=== PATIENT | male | born 1985 | race Caucasian/White ===

== ENCOUNTER 2017-11-25 19:04 | Emergency (ER) | payer OTHER, SELFPAY ==
[2017-11-25 19:09] VITALS: BP 168/102; PULSE 83; RESP 18; TEMP 36.7; O2SAT 95
--- NOTE | 2017-11-25 19:25 | ED.GENADUL_ITS ---
Discharge Plan Disposition Patient Disposition: HOME Condition: Good Discharge Details Chief Complaint: Nk/Back Pain Clinical Impression: Lumbar strain Primary Care Provider: Tigist Guerin ED Provider: Stu Villagomez Home Meds and New Rx's Prescriptions: New cyclobenzaprine 10 mg tablet 10 mg PO TID PRN (Reason: pain) Qty: 20 RF: 0 No Action sertraline 50 MG tablet 50 mg PO DAILY Qty: 90 RF: 4 methylphenidate HCl [Metadate ER] 20 mg tablet extended release 20 mg PO DAILY Qty: 30 RF: 0 Discharge Instructions Instructions: Low Back Strain (ED) Stand Alone Forms: Work Release Discharge Data Discharge Physician: Stu Villagomez Medical Decision Making 32 yo male who denies chronic medical problems, no hx of back surgeries or ivdu , comes in with cc of lower back pain for 5 days after heavy lifting at work. He denies difficultyurinating, weakness, numbness. HAs sharp pain shooting down left leg per pt. HAs no saddle anesthesia, normal relfexes and normal distal sensation. Based on his exam I suspect lumbar strain vs muscle spasm vs disc herniation. Has no abdominal pain to suggest intrabdominal surgical pathology. No findings to suggest cauda equina vs sea or other findings to suggest spinal cord compression. ADvised f/u with pcp within 2 weeks and return precautions given Differential Diagnosis lumbar strain, muscle spasm, disc herniation HPI General Mode of arrival: ambulatory . Date/Time Provider Initiated Documentation: 11/25/17 19:15 . Limitations to Documentation: no limitations . Information obtained by: patient . History of Present Illness 32 year old M presents to the emergency department with the chief complaint of back pain, described as moderate, with intensity rated at 8. and is localized to the back. Patient reports no radiation. Patient started experiencing this day(s) (5) No relieving factors improve symptom(s), Patient notes no other symptoms.. Patient did receive the following treatments prior to arrival, none Related Data Home Medications Medication Instructions Recorded Confirmed sertraline 50 mg PO DAILY #90 tab-cap 05/30/17 11/25/17 methylphenidate ER 20 mg 20 mg PO DAILY #30 tab 11/05/17 11/25/17 tablet,extended release cyclobenzaprine 10 mg PO TID PRN #20 tab 11/25/17 Previous Rx's Medication Instructions Recorded sertraline 50 mg PO DAILY #90 tab-cap 05/30/17 methylphenidate ER 20 mg 20 mg PO DAILY #30 tab 11/05/17 tablet,extended release cyclobenzaprine 10 mg PO TID PRN #20 tab 11/25/17 Allergies Allergy/AdvReac Type Severity Reaction Status Date / Time No Known Allergies Allergy Unverified 11/25/17 19:12 General Stated Complaint: Nk/Back Pain TERRY: 4 Review of Systems Review of Systems All systems reviewed & are unremarkable except as noted in HPI and below Constitutional Denies chills, Denies fever(s) and Denies weakness Eyes Denies loss of vision ENT Denies change in voice Cardiovascular Denies chest pain and Denies dyspnea Respiratory Denies dyspnea Gastrointestinal Denies abdominal pain, Denies nausea and Denies vomiting Genitourinary Denies dysuria Musculoskeletal Denies joint swelling Integumentary/Breasts Denies rash Neurologic Denies loss of vision and Denies weakness Psychiatric Denies depression Endocrine Denies cold intolerance and Denies heat intolerance Allergic/Immunologic Reports urticaria [facility] Social History Smoking/Tobacco Use Status: Never Exam Const General: no acute distress Orientation: alert HENMT Head: normal to inspection Ears: external ears normal General nose exam: external nose normal Mouth: moist mucous membranes Eyes General: appearance normal, both eyes and all related structures Neck Neck: normal visual inspection Resp Effort & Inspection: normal respiratory effort and able to speak in complete sentences Cardio Rate: regular rate Back/Spine/Pelvis Back: no CVA tenderness and other (pain throughout the lumbar region, no midline pain or stepoffs) Skin General skin exam: no rashes or lesions noted Neuro General: alert and oriented x3 Extrem General: normal to inspection Psych Mental Status: mental status grossly normal Course Vital Signs Temperature 36.7 C 11/25/17 19:09 Pulse 83 11/25/17 19:09 Respiratory Rate 18 11/25/17 19:09 Blood Pressure 168/102 H 11/25/17 19:09 Pulse Oximetry 95 11/25/17 19:09 Temperature 36.7 C 11/25/17 19:09 Temperature Source Temporal Artery Scan 11/25/17 19:09 Pulse 83 11/25/17 19:09 Respiratory Rate 18 11/25/17 19:09 Respiratory Effort 11/25/17 19:09 Blood Pressure 168/102 H 11/25/17 19:09 Blood Pressure Position Sitting 11/25/17 19:09 Pulse Oximetry 95 11/25/17 19:09 Oxygen Delivery Method Room Air 11/25/17 19:09 Oxygen Flow Rate 0 11/25/17 19:09
[2017-11-25] MEDS: Cyclobenzaprine 10 MG TAB PO (19:40)
[2017-11-25] MEDS: Ibuprofen 600 MG TAB PO (19:40)
== END 2017-11-25 19:49 | disposition home or self-care (01) ==
PROVIDERS: Emergency Provider Emergency Medicine; PCP Internal Medicine
DX: S39.012A Strain of muscle, fascia and tendon of lower back, initial encounter (principal); X50.0XXA Overexertion from strenuous movement or load, initial encounter
CPT/HCPCS: 99283

== ENCOUNTER 2017-12-12 01:09 | Outpatient (CLI) | payer OTHER, SELFPAY ==
--- NOTE | 2017-12-12 08:20 | DI.MRI_ITS ---
SYMPTOMS/DIAGNOSIS: BACK PAIN, LT LEG RADICULOPATHY, DORSALGIA, M54.9 LUMBAR SPINE MRI: The study was carried out according to the usual protocol. No significant bony signal abnormality is seen. There is partial lumbarization of S 1. At L 1 - 2 the disc is normal. There is mild facet joint DJD and no evidence of spinal stenosis. At L 2 - 3 there is no evidence of a disc herniation. There is mild facet joint DJD and no evidence of spinal stenosis. At L 4 - 5 there is no evidence of a disc herniation. There are mild facet joint degenerative changes and no evidence of spinal stenosis. At L 5 - S 1 there is asymmetric left sided disc osteophyte prominence and moderate facet joint DJD with moderate left foraminal stenosis. There is no intrinsic abnormality involving the lower dorsal cord, conus or filum terminale. SUMMARY: Evidence of degenerative disc disease and DJD with moderate to severe left foraminal stenosis at L 5 - S 1. Please see the above discussion.
== END 2017-12-12 01:29 ==
PROVIDERS: PCP Internal Medicine; Visit Provider Internal Medicine
DX: M54.5 Low back pain (principal); M51.17 Intervertebral disc disorders with radiculopathy, lumbosacral region
CPT/HCPCS: 72148

== ENCOUNTER 2017-12-27 09:52 | Emergency (ER) | payer OTHER, SELFPAY ==
[2017-12-27 10:01] VITALS: BP 149/78; PULSE 80; RESP 16; TEMP 36.8; O2SAT 96
--- NOTE | 2017-12-27 10:08 | W.ED.GENAD ---
Discharge Plan Disposition Patient Disposition: HOME Condition: Good Discharge Details Chief Complaint: HeadInjury Clinical Impression: Furuncle Primary Care Provider: Tigist Guerin ED Provider: Dalton Cordon Home Meds and New Rx's Prescriptions: New sulfamethoxazole-trimethoprim [Bactrim DS] 800-160 mg tablet 1 tab PO DAILY Qty: 20 RF: 0 No Action methylphenidate HCl [Metadate ER] 20 mg tablet extended release 20 mg PO DAILY MDD 20 Qty: 30 RF: 0 tramadol 50 mg tablet 50 mg PO QID PRN (Reason: pain) Qty: 50 RF: 0 sertraline 50 MG tablet 50 mg PO DAILY Qty: 90 RF: 4 cyclobenzaprine 10 mg tablet 10 mg PO TID PRN (Reason: pain) Qty: 20 RF: 0 Discharge Instructions Instructions: Folliculitis (ED) Additional Instructions: Please take the antibiotic as directed. If you notice any worsening of your symptoms, or any new symptoms such as vomiting, diarrhea, fever, chills, shortness of breath, chest pain, numbness, weakness, or fainting , please return immediately to the emergency department for reevaluation. Please follow up with your primary care provider as soon as possible for reassessment and reevaluation. As always, it was a pleasure participating in your medical care today. Referrals: Tigist Guerin MD [Primary Care Provider] - Medical Decision Making This is a pleasant 32-year-old male who presents with signs and symptoms consistent with a furuncle. Unfortunately did try stopping it with a needle the other night, and got some drainage from it. He since has noted some spreading of the tenderness. Physical exam demonstrates no significant fluctuance, or fluid collection on ultrasound. Tetanus is up-to-date. No signs of severe cellulitis, mastoiditis, no headache symptoms of venous sinus thrombosis or other abnormality. No systemic symptoms of fever or chills. Normal vital signs. We will prescribe Bactrim, discharged home with close follow-up. We discussed red flags which return the patient understands. I have extensively reviewed the treatment plan and discharge instructions with the patient and their family. I have addressed all patient concerns at this time. The patient and family was made aware of what symptoms to monitor for that would warrant a return to the emergency department. Discussed the plan with the patient and family, they demonstrate verbal understanding and agreement with our assessment and plan at this time. HPI General Date/Time Provider Initiated Documentation: 12/27/17 10:07. HPI Narrative: This is a pleasant 32-year-old male with a past medical history of chronic back pain who presents today for evaluation of a scalp infection. He states that for the last 3-4 days he has had a small boil in the back of the scalp, however recently he tried stabbing it with a sterile needle, and it got some purulent discharge out. He was concerned because it was becoming more tender and he felt that there might be some spreading as well of the tenderness. He denies any systemic symptoms of fever, chills, headache, vision changes. He denies any history of autoimmune conditions. He denies any allergies. He denies any pertinent family or surgical history. He has no other complaints at this time. No other aggravating or relieving factors. Related Data Home Medications Medication Instructions Recorded Confirmed sertraline 50 mg PO DAILY #90 tab-cap 05/30/17 12/06/17 cyclobenzaprine 10 mg PO TID PRN #20 tab 11/25/17 12/06/17 methylphenidate ER 20 mg 20 mg PO DAILY #30 tab MDD 20 12/06/17 12/06/17 tablet,extended release tramadol 50 mg tablet 50 mg PO QID PRN #50 tab 12/06/17 12/06/17 sulfamethoxazole-trimethoprim 1 tab PO DAILY #20 tab 12/27/17 [Bactrim DS] Previous Rx's Medication Instructions Recorded sertraline 50 mg PO DAILY #90 tab-cap 05/30/17 cyclobenzaprine 10 mg PO TID PRN #20 tab 11/25/17 methylphenidate ER 20 mg 20 mg PO DAILY #30 tab MDD 20 12/06/17 tablet,extended release tramadol 50 mg tablet 50 mg PO QID PRN #50 tab 12/06/17 sulfamethoxazole-trimethoprim 1 tab PO DAILY #20 tab 12/27/17 [Bactrim DS] Allergies Allergy/AdvReac Type Severity Reaction Status Date / Time No Known Allergies Allergy Verified 12/06/17 15:33 General Stated Complaint: HeadInjury TERRY: 3 Review of Systems Review of Systems All systems reviewed & are unremarkable except as noted in HPI and below Exam Narrative Exam Narrative: 1.Const: Well-nourished, Well-developed, appearing stated age 2.Eyes: PERRL, no conjunctival injection, and symmetrical lids. 3.ENT: Atraumatic external nose and ears. Moist MM. Neck: Symmetric, trachea midline, No thyromegaly. 4.CVS: +S1/S2, No murmurs or gallops. Peripheral pulses 2+ and equal in all extremities. Brisk capillary refill in all extremities. 5.RESP: Unlabored respiratory effort. Clear to auscultation bilaterally. No wheezes rales or rhonchi 6.GI: Soft, Nontender/Nondistended, No hepatosplenomegaly. No guarding or rebound. 7.MSK: Normocephalic/Atraumatic, Extremities w/o deformity or ttp No cyanosis or clubbing, Normal movement of all extremities 8.Skin: Warm, Dry. Patient's right posterior scalp of the right occiput demonstrates evidence of a small firm uncle. No pustular component. Minimal tenderness. Minimal erythema. Bedside ultrasound demonstrates no significant fluid collection. No fluctuance. No evidence of mastoid tenderness, otitis externa or other abnormalities. No active drainage. 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 Sensation grossly intact, no focal neurologic deficits. 10.Psych: (AAO) x3. Appropriate mood and affect Course Vital Signs Temperature 36.8 C 12/27/17 10:01 Pulse 80 12/27/17 10:01 Respiratory Rate 16 12/27/17 10:01 Blood Pressure 149/78 H 12/27/17 10:01 Pulse Oximetry 96 12/27/17 10:01 Temperature 36.8 C 12/27/17 10:01 Temperature Source Temporal Artery Scan 12/27/17 10:01 Pulse 80 12/27/17 10:01 Respiratory Rate 16 12/27/17 10:01 Respiratory Effort 12/27/17 10:03 Respiratory Depth Normal 12/27/17 10:03 Respiratory Pattern Normal 12/27/17 10:03 Blood Pressure 149/78 H 12/27/17 10:01 Blood Pressure Position Sitting 12/27/17 10:01 Pulse Oximetry 96 12/27/17 10:01 Oxygen Delivery Method Room Air 12/27/17 10:01 Oxygen Flow Rate 0 11/15/18 10:01 Pain Level 8 12/27/17 10:01
[2017-12-27 10:15] VITALS: BP 135/80; PULSE 75; RESP 18; TEMP 36.9; O2SAT 99
== END 2017-12-27 10:16 | disposition home or self-care (01) ==
LOC: ER 10:18
PROVIDERS: Emergency Provider Student in an Organized Health Care Education/Training Program; PCP Internal Medicine
DX: L02.821 Furuncle of head [any part, except face] (principal)
CPT/HCPCS: 99283

== ENCOUNTER 2018-01-01 21:46 | Emergency (ER) | payer OTHER, SELFPAY ==
[2018-01-01 21:50] VITALS: BP 121/75; PULSE 65; RESP 16; TEMP 36.4; O2SAT 94
--- NOTE | 2018-01-01 22:12 | W.ED.GENAD ---
Discharge Plan Disposition Patient Disposition: HOME Condition: Improving Discharge Details Chief Complaint: RashLesion Clinical Impression: Abscess of scalp Primary Care Provider: Tigist Guerin ED Provider: Kirill Tsang Home Meds and New Rx's Prescriptions: New cephalexin 500 mg tablet 500 mg PO TID 7 Days Qty: 21 RF: 0 Continue methylphenidate HCl [Metadate ER] 20 mg tablet extended release 20 mg PO DAILY MDD 20 Qty: 30 RF: 0 tramadol 50 mg tablet 50 mg PO QID PRN (Reason: pain) Qty: 50 RF: 0 sertraline 50 MG tablet 50 mg PO DAILY Qty: 90 RF: 4 hydrocodone-acetaminophen 5-325 mg tablet 1 tab PO Q6H MDD 4 tabs PRN (Reason: pain) Qty: 30 RF: 0 cyclobenzaprine 10 mg tablet 10 mg PO TID PRN (Reason: pain) Qty: 20 RF: 0 sulfamethoxazole-trimethoprim [Bactrim DS] 800-160 mg tablet 1 tab PO DAILY Qty: 20 RF: 0 Discharge Instructions Instructions: Abscess (ED) Additional Instructions: Add Keflex to your current medication regimen. Remove wick as we discussed in 24 hours. Follow-up in primary care clinic as previously planned. Return to the emergency department for any acute concern. Medical Decision Making 40-year-old male seen in the emergency department on December 27 for a early furuncle of the right scalp. He is placed on Bactrim which she has been taking. He now reports days of aching, constant, worsening pain and enlarging area of abscess. No instrumentation at home. Denies a fever. He states that he has otherwise been well. Patient consented for risks and benefits of incision and drainage, claimed and prepped in a standard sterile fashion, anesthetized, initial needle aspiration performed return purulent fluid, small incision performed with #11 blade and approximately 2 cc of purulent fluid expressed. Sent for culture. A wick was placed. We will add Keflex Discussed with patient home care as well as return precautions. HPI General Mode of arrival: ambulatory. Date/Time Provider Initiated Documentation: 01/01/18 21:47. Limitations to Documentation: no limitations. Information obtained by: patient. History of Present Illness 32 year old M presents to the emergency department with the chief complaint of Right scalp infection, described as moderate, Quality is described as aching, and is localized to the head. Patient reports no radiation. Patient started experiencing this day(s) and it has been constant. No relieving factors improve symptom(s), No exacerbating factors reported . Patient notes no other symptoms.. Related Data Home Medications Medication Instructions Recorded Confirmed sertraline 50 mg PO DAILY #90 tab-cap 05/30/17 01/01/18 cyclobenzaprine 10 mg PO TID PRN #20 tab 11/25/17 01/01/18 methylphenidate ER 20 mg 20 mg PO DAILY #30 tab MDD 20 12/06/17 01/01/18 tablet,extended release tramadol 50 mg tablet 50 mg PO QID PRN #50 tab 12/06/17 01/01/18 sulfamethoxazole-trimethoprim 1 tab PO DAILY #20 tab 12/27/17 01/01/18 [Bactrim DS] hydrocodone 5 mg-acetaminophen 325 1 tab PO Q6H PRN #30 tab MDD 4 tabs 12/31/17 01/01/18 mg tablet cephalexin 500 mg PO TID 7 Days #21 tab 01/01/18 Previous Rx's Medication Instructions Recorded sertraline 50 mg PO DAILY #90 tab-cap 05/30/17 cyclobenzaprine 10 mg PO TID PRN #20 tab 11/25/17 methylphenidate ER 20 mg 20 mg PO DAILY #30 tab MDD 20 12/06/17 tablet,extended release tramadol 50 mg tablet 50 mg PO QID PRN #50 tab 12/06/17 sulfamethoxazole-trimethoprim 1 tab PO DAILY #20 tab 12/27/17 [Bactrim DS] hydrocodone 5 mg-acetaminophen 325 1 tab PO Q6H PRN #30 tab MDD 4 tabs 12/31/17 mg tablet cephalexin 500 mg PO TID 7 Days #21 tab 01/01/18 Allergies Allergy/AdvReac Type Severity Reaction Status Date / Time No Known Allergies Allergy Verified 01/01/18 21:53 General Stated Complaint: RashLesion TERRY: 3 Review of Systems Review of Systems 6 systems reviewed and otherwise negative [facility] Social History Smoking/Tobacco Use Status: Never Exam Narrative Exam Narrative: GEN: awake, alert, oriented 3. Pleasant, well groomed, interactive. HEAD: Normocephalic, atraumatic, right parietal area with a sausage like approximately 1 x 4 cm area of fluctuance is tender to touch. ENT: Mucous membranes moist, oropharynx unremarkable, External ear exam unremarkable EYES: PERRL, EOMI NECK: Full ROM, no MCKENZIE, no menigismus EXT: Full ROM, no edema, no rash Neuro: Grossly normal neurologic exam, conversant, interactive. Psych: Speech fluent, thoughts congruent, affect normal Course Vital Signs Temperature 36.4 C L 01/01/18 21:50 Pulse 65 01/01/18 21:50 Respiratory Rate 16 01/01/18 21:50 Blood Pressure 121/75 01/01/18 21:50 Pulse Oximetry 94 L 01/01/18 21:50 Temperature 36.4 C L 01/01/18 21:50 Temperature Source Temporal Artery Scan 01/01/18 21:50 Pulse 65 01/01/18 21:50 Respiratory Rate 16 01/01/18 21:50 Respiratory Effort 01/01/18 21:50 Blood Pressure 121/75 01/01/18 21:50 Pulse Oximetry 94 L 01/01/18 21:50 Oxygen Delivery Method Room Air 01/01/18 21:50 Oxygen Flow Rate 0 01/01/18 21:50 Pain Level 7 01/01/18 21:50 Procedures Abscess I/D Site: Scalp Side (if applicable): Right Local Anesthetic: Lidocaine 1% Amount of anesthesia used (mL): 2 Technique: Needle Aspiration and Incised with #11 Blade Amount of fluid expressed (mL): 2 Packing used?: Iodoform
--- NOTE | 2018-01-01 22:16 | ED.GENADUL_ITS ---
Discharge Plan Disposition Patient Disposition: HOME Condition: Improving Discharge Details Chief Complaint: RashLesion Clinical Impression: Abscess of scalp Primary Care Provider: Tigist Guerin ED Provider: Kirill Tsang Home Meds and New Rx's Prescriptions: New cephalexin 500 mg tablet 500 mg PO TID 7 Days Qty: 21 RF: 0 Continue methylphenidate HCl [Metadate ER] 20 mg tablet extended release 20 mg PO DAILY MDD 20 Qty: 30 RF: 0 tramadol 50 mg tablet 50 mg PO QID PRN (Reason: pain) Qty: 50 RF: 0 sertraline 50 MG tablet 50 mg PO DAILY Qty: 90 RF: 4 hydrocodone-acetaminophen 5-325 mg tablet 1 tab PO Q6H MDD 4 tabs PRN (Reason: pain) Qty: 30 RF: 0 cyclobenzaprine 10 mg tablet 10 mg PO TID PRN (Reason: pain) Qty: 20 RF: 0 sulfamethoxazole-trimethoprim [Bactrim DS] 800-160 mg tablet 1 tab PO DAILY Qty: 20 RF: 0 Discharge Instructions Instructions: Abscess (ED) Additional Instructions: Add Keflex to your current medication regimen. Remove wick as we discussed in 24 hours. Follow-up in primary care clinic as previously planned. Return to the emergency department for any acute concern. Medical Decision Making 40-year-old male seen in the emergency department on December 27 for a early furuncle of the right scalp. He is placed on Bactrim which she has been taking. He now reports days of aching, constant, worsening pain and enlarging area of abscess. No instrumentation at home. Denies a fever. He states that he has otherwise been well. Patient consented for risks and benefits of incision and drainage, claimed and prepped in a standard sterile fashion, anesthetized, initial needle aspiration performed return purulent fluid, small incision performed with #11 blade and approximately 2 cc of purulent fluid expressed. Sent for culture. A wick was placed. We will add Keflex Discussed with patient home care as well as return precautions. HPI General Mode of arrival: ambulatory . Date/Time Provider Initiated Documentation: 01/01/18 21:47 . Limitations to Documentation: no limitations . Information obtained by: patient . History of Present Illness 32 year old M presents to the emergency department with the chief complaint of Right scalp infection, described as moderate, Quality is described as aching , and is localized to the head. Patient reports no radiation. Patient started experiencing this day(s) and it has been constant. No relieving factors improve symptom(s), No exacerbating factors reported . Patient notes no other symptoms.. Related Data Home Medications Medication Instructions Recorded Confirmed sertraline 50 mg PO DAILY #90 tab-cap 05/30/17 01/01/18 cyclobenzaprine 10 mg PO TID PRN #20 tab 11/25/17 01/01/18 methylphenidate ER 20 mg 20 mg PO DAILY #30 tab MDD 20 12/06/17 01/01/18 tablet,extended release tramadol 50 mg tablet 50 mg PO QID PRN #50 tab 12/06/17 01/01/18 sulfamethoxazole-trimethoprim 1 tab PO DAILY #20 tab 12/27/17 01/01/18 [Bactrim DS] hydrocodone 5 mg-acetaminophen 325 1 tab PO Q6H PRN #30 tab MDD 4 tabs 12/31/17 01/01/18 mg tablet cephalexin 500 mg PO TID 7 Days #21 tab 01/01/18 Previous Rx's Medication Instructions Recorded sertraline 50 mg PO DAILY #90 tab-cap 05/30/17 cyclobenzaprine 10 mg PO TID PRN #20 tab 11/25/17 methylphenidate ER 20 mg 20 mg PO DAILY #30 tab MDD 20 12/06/17 tablet,extended release tramadol 50 mg tablet 50 mg PO QID PRN #50 tab 12/06/17 sulfamethoxazole-trimethoprim 1 tab PO DAILY #20 tab 12/27/17 [Bactrim DS] hydrocodone 5 mg-acetaminophen 325 1 tab PO Q6H PRN #30 tab MDD 4 tabs 12/31/17 mg tablet cephalexin 500 mg PO TID 7 Days #21 tab 01/01/18 Allergies Allergy/AdvReac Type Severity Reaction Status Date / Time No Known Allergies Allergy Verified 01/01/18 21:53 General Stated Complaint: RashLesion TERRY: 3 Review of Systems Review of Systems 6 systems reviewed and otherwise negative [facility] Social History Smoking/Tobacco Use Status: Never Exam Narrative Exam Narrative: GEN: awake, alert, oriented 3. Pleasant, well groomed, interactive. HEAD: Normocephalic, atraumatic, right parietal area with a sausage like approximately 1 x 4 cm area of fluctuance is tender to touch. ENT: Mucous membranes moist, oropharynx unremarkable, External ear exam unremarkable EYES: PERRL, EOMI NECK: Full ROM, no MCKENZIE, no menigismus EXT: Full ROM, no edema, no rash Neuro: Grossly normal neurologic exam, conversant, interactive. Psych: Speech fluent, thoughts congruent, affect normal Course Vital Signs Temperature 36.4 C L 01/01/18 21:50 Pulse 65 01/01/18 21:50 Respiratory Rate 16 01/01/18 21:50 Blood Pressure 121/75 01/01/18 21:50 Pulse Oximetry 94 L 01/01/18 21:50 Temperature 36.4 C L 01/01/18 21:50 Temperature Source Temporal Artery Scan 01/01/18 21:50 Pulse 65 01/01/18 21:50 Respiratory Rate 16 01/01/18 21:50 Respiratory Effort 01/01/18 21:50 Blood Pressure 121/75 01/01/18 21:50 Pulse Oximetry 94 L 01/01/18 21:50 Oxygen Delivery Method Room Air 01/01/18 21:50 Oxygen Flow Rate 0 01/01/18 21:50 Pain Level 7 01/01/18 21:50 Procedures Abscess I/D Site: Scalp Side (if applicable): Right Local Anesthetic: Lidocaine 1% Amount of anesthesia used (mL): 2 Technique: Needle Aspiration and Incised with #11 Blade Amount of fluid expressed (mL): 2 Packing used?: Iodoform
[2018-01-01] MEDS: Cephalexin 500 MG CAP 1000 MG PO (22:22)
== END 2018-01-01 22:46 | disposition home or self-care (01) ==
LOC: ER 22:26
PROVIDERS: Emergency Provider Emergency Medicine; PCP Internal Medicine
DX: L02.811 Cutaneous abscess of head [any part, except face] (principal)
CPT/HCPCS: 10061; 10160; 87070; 87205

== ENCOUNTER 2018-09-05 12:04 | Outpatient (CLI) | payer OTHER, SELFPAY ==
--- NOTE | 2018-09-05 06:00 | DI.RAD_ITS ---
SYMPTOMS/DIAGNOSIS: LUMBAR RADICULOPATHY, LUMBAR EPIDURAL STEROID INJECTION C-ARM FLUOROSCOPY: Fluoroscopy Time: 13.1 sec, 8.27 mGy Fluoroscopy was provided for guidance with lumbar spine pain clinic injection. Please see procedure note for details.
[2018-09-05 12:41] VITALS: BP 152/74; PULSE 73; RESP 18; TEMP 37.2; O2SAT 98
--- NOTE | 2018-09-05 13:10 | PDOC.PAIN_ITS ---
Pain Clinic Procedure Note Current Active Problems Problem Status Onset Lumbosacral radiculitis Lumbar Epidural Steroid Injection Procedure Note COMMENTS: Previously evaluated by Tamraa Artur in this clinic. I did review her notes and the most recent lumbar spine MRI. He has left-sided low back and leg pain. JUAN A WIGGINS has been referred to the [facility] for lumbar epidural steroid injection. The patient was greeted by the nurse who verified patients name and . Patient was then taken to the fluoroscopy suite. The patient was interviewed and the medial record reviewed. There were no medical, pharmacologic, radiographic, or other structural contraindications to attempting fluoroscopically guided lumbar epidural steroid injection. Risks and expected side effects as well as potential benefits of the procedure were reviewed and voiced concerns expressed. The patient consent form was signed and witnessed. Standard patient time-out procedure was performed. The patient was placed in the prone position on the fluoroscopy table and automated blood pressure cuff and pulse oximeter applied. The skin entry point for entering/approaching the epidural space at L5-S1 on the left side and marked. Following thorough chlorhexadine preparation of the skin and draping and 1% lidocaine infiltration of the skin entry point and subcutaneous tissues, a 18 gauge 5 Touhy needle was placed under fluoroscopic guidance and with loss of resistance technique into the epidural space. Needle tip placement and depth were aided and confirmed by fluoroscopy. There was no paresthesia or return of blood or CSF through the needle. 1 cc's of Omnipaque 240 was injected with clear epidural spread confirmed with fluoroscopy. 80mg depomedrol was injected. There was not any unusual discomfort expressed by JUAN A WIGGINS. Patient's vital signs were stable throughout the procedure and were as recorded in nursing records. Follow up plans and appointments were discussed with patient. Post procedure i nstruction was given as documented in nursing records and having met discharge criteria and was discharged from the [facility]. COMMENTS: If this procedure is helpful, it can be completed up to 3 times per 12 months.
[2018-09-05] MEDS: Omnipaque 240 MG/ML 50 ML BTL IJ (13:23)
[2018-09-05 13:25] VITALS: BP 152/83; PULSE 75; RESP 23; O2SAT 96
[2018-09-05] MEDS: methylPREDNISolone ACETATE 40 MG/ML VIAL IJ (13:25)
== END 2018-09-05 12:24 ==
PROVIDERS: PCP Internal Medicine; Visit Provider Preventive Medicine Occupational Medicine
DX: M54.17 Radiculopathy, lumbosacral region (principal)
CPT/HCPCS: 62323; 72100; J1030; Q9967

== ENCOUNTER 2019-03-12 12:18 | Emergency (ER) | payer SELFPAY ==
[2019-03-12 12:24] VITALS: BP 135/87; PULSE 72; RESP 16; TEMP 36.7; O2SAT 95
--- NOTE | 2019-03-12 12:48 | ED.GENADUL_ITS ---
Discharge Plan Disposition Patient Disposition: HOME Condition: Improving Discharge Details Chief Complaint: Abd Prob Clinical Impression: Epiploic appendagitis Primary Care Provider: Tigist Lundberg ED Provider: Kirill Tsang Home Meds and New Rx's Prescriptions: No Action ibuprofen 400 mg Tablet 400 mg PO PRN PRNRF: 0 Discharge Instructions Additional Instructions: Your CAT scan revealed epiploic appendagitis. Please take ibuprofen 600 mg every 6 hours for pain. We will refer you to surgery clinic for a follow-up. The office number is [phone] Return for increasing pain, vomiting, or any other acute concerns. Bedrest and warm compress as needed. Medical Decision Making 33-year-old male presents from home with his mother. He reports approximately 3 days of left lower quadrant dull pain somewhat worse with movement and driving in the car. Denies a fever or intolerance of food. He arrives a temp 36.7, pulse 72, blood pressure 135/80. He is tender over the left lower quadrant with mild rebound present. Differential diagnosis would include colitis, diverticulitis, atypical presentation of appendicitis, must exclude pyelonephritis. IV access was established, patient given a fluid bolus and ketorolac. Labs reveal an elevated white blood cell count of 13, chemistries and LFTs unremarkable, urinalysis concentrated with a specific gravity of 1.03 CT scan obtained: There is evidence of epiploic appendagitis. No evidence of diverticulitis. See formal report. Discussed with patient. Discussed with him that the primary treatment is NSAIDs. I will arrange an outpatient follow-up from an surgery clinic for recheck and to ensure that there are no complications or chronic pain. He is stable for outpatient management. [facility] General Mode of arrival: ambulatory . Date/Time Provider Initiated Documentation: 03/12/19 12:22 . Limitations to Documentation: no limitations . Information obtained by: patient and family . History of Present Illness 33 year old M presents to the emergency department with the chief complaint of Left lower quadrant abdominal pain for 3 days time, described as moderate, Quality is described as dull, and is localized to the abdomen. Patient reports radiation to back. Patient started experiencing this day(s) and it has been constant. Rest improves symptom(s), Movement worsens symptoms . Patient notes denies fever/chills, loss of appetite and nausea/vomiting. Patient did receive the following treatments prior to arrival, none Related Data Home Medications Medication Instructions Recorded Confirmed ibuprofen 400 mg PO PRN PRN 03/12/19 03/12/19 Allergies Allergy/AdvReac Type Severity Reaction Status Date / Time No Known Allergies Allergy Verified 03/12/19 12:29 General Stated Complaint: Abd Prob TERRY: 3 Review of Systems Narrative: 6 systems reviewed and otherwise negative. [facility] Medical History DDD (degenerative disc disease) (Chronic) Depression (Chronic) Heart murmur (Chronic) Herniated nucleus pulposus (Acute) Hx of back injury (Acute) Left leg pain (Acute) Low back pain (Chronic) Spinal stenosis (Chronic) Social History Smoking/Tobacco Use Status: Current every day Alcohol Intake: current Alcohol Intake frequency: holidays/special occasions only Alcohol type: beer Drug use: Occasionally Substance use type: marijuana Do you feel safe at home: Yes Do you feel safe in your relationship?: Yes Exam Narrative Exam Narrative: GEN: awake, alert, oriented 3. Pleasant, well groomed, interactive. HEAD: Normocephalic, atraumatic ENT: Mucous membranes moist, oropharynx unremarkable, External ear exam unremarkable EYES: PERRL, EOMI NECK: Full ROM, no MCKENZIE, no menigismus CHEST/RESP: Nontender, clear to auscultation bilateral, no wheeze/rhonchi/rales CARDIOVASCULAR: RRR, no murmur, rub beverley. 2+ Rad pulse bilateral ABDOMEN: Soft, tender left lower quadrant with mild rebound present, no mass. +Bowel sounds EXT: Full ROM, no edema, no rash Neuro: Grossly normal neurologic exam, conversant, interactive. Psych: Speech fluent, thoughts congruent, affect normal Course Vital Signs Vital signs: Vital Signs Temperature 36.7 C 03/12/19 12:24 Pulse 72 03/12/19 12:24 Respiratory Rate 16 03/12/19 12:24 Blood Pressure 135/87 03/12/19 12:24 Pulse Oximetry 95 03/12/19 12:24 Temperature 36.7 C 03/12/19 12:24 Temperature Source Temporal Artery Scan 03/12/19 12:24 Pulse 72 03/12/19 12:24 Respiratory Rate 16 03/12/19 12:24 Blood Pressure 135/87 03/12/19 12:24 Blood Pressure Position Sitting 03/12/19 12:24 Pulse Oximetry 95 03/12/19 12:24 Oxygen Delivery Method Room Air 03/12/19 12:24 Oxygen Flow Rate 0 03/12/19 12:24 Pain Level 7 03/12/19 12:24 Comment 03/12/19 12:24
[2019-03-12] MEDS: Normal Saline 1,000 ML 125 ML IV (12:55)
[2019-03-12] MEDS: Normal Saline Flush 10 ML SYR IVP (12:55)
[2019-03-12] MEDS: Ketorolac 15 MG/ML VIAL IVP (13:07)
[2019-03-12 13:17] LABS: Abs Immature Grans 0.03 k/cumm (0.0-0.09); Absolute Basophil Count 0.05 k/cumm (0.0-0.2); Absolute Eosinophil Count 0.41 k/cumm (0.0-0.7); Absolute Lymphocyte Count 4.04 k/cumm (1.2-3.4); Absolute Monocyte Count 1.12 k/cumm (0.11-0.7); Absolute Neutrophil Count 7.86 k/cumm (1.2-6.7); Basophils % 0.4; HCT 48.3 % (40.0-50.0); HGB 16.3 g/dL (13.5-17.5); Immature Grans % 0.2 %; Lymphocytes % 29.9; Mean Corp. HGB Concentration 33.7 g/dL (32.0-36.0); Mean Corpuscular Hemoglobin 28.9 pg (27.0-33.0); Mean Corpuscular Volume 85.6 fL (80-95); Mean Platelet Volume 9.9 fL (8.0-11.0); Monocytes % 8.3; Neutrophils % 58.2; Platelet Count 340 x1000/uL (130-400); RBC 5.64 m/cumm (4.50-6.00); RBC Distribution Width 13.5 % (11.8-14.1)
[2019-03-12 13:24] LABS: Bilirubin Negative (Negative); Blood Negative (Negative); Clarity Clear (Clear); Glucose Negative (Negative); Ketones Negative (Negative); Leukocyte Esterase Negative (Negative); Nitrite Negative (Negative); Specific Gravity >= 1.030 (1.005-1.025); Urobilinogen 0.2 EU/dL (Up TO 0.2); pH 5.5 (5-8)
[2019-03-12 13:25] LABS: ALT 53 U/L (16-63); AST 25 U/L (15-37); Alkaline Phosphatase 66 U/L (46-116); Anion Gap 10.5 mmol/L (3-11); BUN 14 mg/dL (7-18); Bilirubin, Total 0.4 mg/dL (0.2-1.0); CO2 25.5 mmol/L (21.0-32.0); CREATININE 1.11 mg/dL (0.70-1.30); Chloride 104 mmol/L (98-107); Glucose 93 mg/dL (74-106); Potassium 3.8 mmol/L (3.5-5.1); Sodium 140 mmol/L (136-145); Total Protein 8.2 g/dL (6.4-8.2)
[2019-03-12 14:05] VITALS: BP 115/75; PULSE 74; RESP 18; TEMP 36.8; O2SAT 96
--- NOTE | 2019-03-12 14:05 | DI.CT_ITS ---
EXAM: CT ABDOMEN AND PELVIS W CLINICAL HISTORY: L LOWER QUADRANT PAIN TECHNIQUE: Post IV contrast. Without oral contrast. COMPARISON: No exams were available for comparison FINDINGS: There is stranding in the fat anterior to the mid descending colon. It does not appear to be centered around the colon and no diverticula are seen in this location. The findings likely represent epiploi c appendagitis. A few diverticular seen more inferiorly in the descending colon. There is no abnormal colonic distention or wall thickening. The small bowel and stomach are nondistended. The lung bases are clear. Heart size is normal. The liver, gallbladder, spleen, adrenals, pancreas and kidneys appea r normal. The urinary bladder is minimally distended. The prostate is normal in size. IMPRESSION: Epiploic appendagitis seen anterior to the descending colon.
[2019-03-12] MEDS: Omnipaque 350 MG/ML 100 ML BTL IJ (14:34)
[2019-03-12] MEDS: Normal Saline - Diluent 50 ML VIAL IV (14:35)
[2019-03-12 14:51] VITALS: PULSE 64; O2SAT 99
--- NOTE | 2019-03-12 17:02 | NUR.NOTE ---
Nursing Note: Referral faxed to [facility].
== END 2019-03-12 14:50 | disposition home or self-care (01) ==
PROVIDERS: Emergency Provider Emergency Medicine; PCP Internal Medicine
DX: K63.89 Other specified diseases of intestine (principal); R79.89 Other specified abnormal findings of blood chemistry
CPT/HCPCS: 80053; 96374; 99285; 74177; 81003; 85025; 99284; J1885; J3490

== ENCOUNTER 2020-06-07 04:03 | Outpatient (CLI) | payer MEDICAID, SELFPAY ==
[2020-06-07 13:11] LABS: Calculated LDL 177 mg/dL (<100); Cholesterol 260 mg/dL (<200); HDL Cholesterol 34 mg/dL (40-60); Triglyceride 248 mg/dL (<150)
== END 2020-06-07 04:04 | disposition home or self-care (01) ==
LOC: LOS 04:03
PROVIDERS: PCP Nurse Practitioner; Visit Provider Nurse Practitioner
DX: Z13.6 Encounter for screening for cardiovascular disorders (principal)
CPT/HCPCS: 36415; 80061

== ENCOUNTER 2020-07-06 07:43 | Outpatient (CLI) | payer MEDICAID, SELFPAY ==
[2020-07-06 07:58] VITALS: BP 148/89; PULSE 66; RESP 16; TEMP 37.1; O2SAT 98
--- NOTE | 2020-07-06 08:29 | DI.RAD_ITS ---
Exam(s) XR PAIN CLINIC LUMBAR SP 2V EXAM: XR PAIN CLINIC LUMBAR SP 2V CLINICAL HISTORY: Dx: Lumbar Radiculopathy. TECHNIQUE: Fluoroscopy was provided for the referring physician for guidance with performing injecti on procedure. COMPARISON: No exams were available for comparison FINDINGS: Please see procedure note for details. RADIATION DOSE DELIVERED: tabitha Arroyo= 14.58 mGy
[2020-07-06 08:32] VITALS: BP 139/71; PULSE 82; RESP 18; O2SAT 98
--- NOTE | 2020-07-06 08:33 | PDOC.PAIN_ITS ---
Pain Clinic Procedure Note Procedure Note Procedure Note: Lumbar Epidural Steroid Injection Procedure Note Pre-operative diagnosis: lumbar radiculopathy Post-operative diagnosis: same as above COMMENTS: Previously evaluated by Ms. Siddiqui in this clinic. MRI L spine reviewed. Patient last received L5-S1 in [address] Greer which provided sustained pain relief lasting for 5-6 months. 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 He has restarted his job, mainly out of [place], [place]. He describes similar pattern of pain across lower back down left leg. He reports average pain level to be 6-7 out of 10. JUAN A WIGGINS has been referred to the [facility] for lumbar epidural steroid injection. The patient was greeted by the nurse who verified patients name and . Patient was then taken to the fluoroscopy suite. The patient was interviewed and the medial record reviewed. There were no medical, pharmacologic, radiographic, or other structural contraindications to attempting fluoroscopically guided lumbar epidural steroid injection. Risks and expected side effects as well as potential benefits of the procedure were reviewed and voiced concerns expressed. The patient consent form was signed and witnessed. Standard patient time-out procedure was performed. The patient was placed in the prone position on the fluoroscopy table and automated blood pressure cuff and pulse oximeter applied. The skin entry point for entering/approaching the epidural space at L5-S1 on the left side and marked. Following thorough chlorhexadine preparation of the skin and draping and 1% lidocaine infiltration of the skin entry point and subcutaneous tissues, a 18 gauge 5 Touhy needle was placed under fluoroscopic guidance and with loss of resistance technique into the epidural space. Needle tip placement and depth were aided and confirmed by fluoroscopy. There was no paresthesia or return of blood or CSF through the needle. 1 cc's of Omnipaque 240 was injected with clear epidural spread confirmed with fluoroscopy. 80mg depomedrol was injected. There was not any unusual discomfort expressed by JUAN A WIGGINS. Patient's vital signs were stable throughout the procedure and were as recorded in nursing records. Follow up plans and appointments were discussed with patient. Post procedure instruction was given as documented in nursing records and having met discharge criteria and was discharged from the [facility]. COMMENTS: If this procedure is helpful, it can be completed up to 3 times per 12 months. Due to patient's body habitus, 5'' Touhy needle should be used. Tan Adan MD Pain Management
[2020-07-06] MEDS: Omnipaque 240 MG/ML 50 ML BTL IJ (08:44)
[2020-07-06] MEDS: methylPREDNISolone ACETATE 80 MG/ML VIAL IJ (08:44)
== END 2020-07-06 07:44 | disposition home or self-care (01) ==
LOC: PC 07:44
PROVIDERS: PCP Nurse Practitioner; Visit Provider Internal Medicine
DX: M54.16 Radiculopathy, lumbar region (principal)
CPT/HCPCS: 62323; 72100; J1040; Q9967

== ENCOUNTER 2020-09-22 22:44 | Emergency (ER) | payer BC, SELFPAY ==
[2020-09-22 22:50] VITALS: BP 123/65; PULSE 97; RESP 16; TEMP 36.4; O2SAT 96
--- NOTE | 2020-09-22 23:05 | ED.GENADUL_ITS ---
Discharge Plan Disposition Patient Disposition: HOME Condition: Stable Discharge Details Chief Complaint: Abd Prob Clinical Impression: Abdominal pain, Hepatomegaly Primary Care Provider: Kaitlin Soto ED Provider: Stu Villagomez Home Meds and New Rx's Prescriptions: No Action No Known Home Meds RF: 0 Discharge Instructions Instructions: Abdominal Pain (ED) Additional Instructions: your liver function tests were very mildly elevated and your cat scan showed a mild enlargement of your liver follow up with your primary care provider within a week if you feel more ill, have severe worsening pain, persistent vomit or fevers return to the emergency department Medical Decision Making 34 yo male who denies chronic medical problems, denies drinking alcohol daily, does smoke and uses marijuana, comes in with chief complaint of 2 weeks of right sided abodmen pain that is constant but fluctuates in intensity. He can't think of anything that makes it worse or better and doesn't believe it worsens with eating. He denies chest pain, fevers, n/v, dyspnea. He is in no distress on exam and does have tenderness in the right upper and mildly in the right lower. Suspect cholecystitis vs biliary colic but on bedside u/s I can't visualize the gallbladder. Will obtain ct abd/pelvis and labs including lfts, lipase and cbc as well as cmp. No chest pain and pain is reproducible on exam so doubt acs and is wells low perc negative so doubt PE at this time. labs show mild elevation of lfts otherwise unremarkable and ct shows question ileitis but has no diarrhea or other symptoms, more likely motion artifact. He continues to appear well and has only mild pain declining any pain medications. He is stable for d/c, advised of the hepatomegaly and mild elevation of lfts. He is going to f/u with pcp and return precautions given Differential Diagnosis Differential Diagnosis: pancreatitis, cholecystitis, hepatitis Medical Records Medical records reviewed: Yes I reviewed the patient's medical records. Lab Data Lab results reviewed: Yes I reviewed the patient's lab results. HPI General Mode of arrival: ambulatory . Date/Time Provider Initiated Documentation: 09/22/20 22:54 . Limitations to Documentation: no limitations . Information obtained by: patient . History of Present Illness 34 year old M presents to the emergency department with the chief complaint of right sided abdomen pain, described as moderate, with intensity rated at 7. Quality is described as sharp, and is localized to the abdomen. Patient reports no radiation. Patient started experiencing this week(s) (2) and it has been constant. No relieving factors improve symptom(s), No exacerbating factors reported . Patient notes no other symptoms.. Patient did receive the following treatments prior to arrival, none Related Data Home Medications Medication Instructions Recorded Confirmed Unknown [No Known Home Meds] 04/08/20 09/22/20 Allergies Allergy/AdvReac Type Severity Reaction Status Date / Time No Known Allergies Allergy Verified 09/22/20 22:53 General Stated Complaint: Abd Prob TERRY: 3 Review of Systems All systems reviewed & are unremarkable except as noted in HPI and below Constitutional Constitutional: Denies chills, Denies fever(s) and Denies weakness Cardiovascular Cardiovascular: Denies chest pain and Denies dyspnea Respiratory Respiratory: Denies cough and Denies dyspnea Gastrointestinal Gastrointestinal: Denies nausea and Denies vomiting Musculoskeletal Musculoskeletal: Denies joint swelling Neurologic Neurologic: Denies weakness PFSH Medical History ADHD (attention deficit hyperactivity disorder) DDD (degenerative disc disease) Depression Diverticula of colon Epiploic appendagitis Heart murmur Herniated nucleus pulposus Hx of back injury Left leg pain Low back pain Obese abdomen Spinal stenosis Family History (Updated 04/09/20 @ 09:37 by Estee Thomas) Mother Asthma Father Hyperlipidemia Sister Depression Brother Alcohol abuse Depression Brother No problems noted. Son No problems noted. Son No problems noted. Daughter No problems noted. 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 Pets and animals: Yes Pets and animals: dog(s) Sexually active: Yes Do you think of yourself as: straight/heterosexual Current gender identity: male What is your relationship status?: How often do you talk on the phone with friends or family?: twice per week How often do you get together with friends or relatives?: never Do you belong to any clubs or organized social groups?: no Panel score (0-1 are the most socially isolated patients): 1 What type of physical activity do you participate in: walking and independent ambulation Seatbelt use: always Helmet use: Yes Helmet use: always Do you feel safe at home: Yes Do you feel safe in your relationship?: Yes Exam Const General: no acute distress Orientation: alert HENMT Head: normal to inspection Ears: external ears normal General nose exam: external nose normal Mouth: moist mucous membranes Eyes General: appearance normal, both eyes and all related structures Neck Neck: normal visual inspection Resp Effort & Inspection: normal respiratory effort and able to speak in complete sentences Cardio Rate: regular rate GI Palpation: soft and tender Skin General skin exam: no rashes or lesions noted Neuro General: patient alert and patient oriented x3 Extrem General: normal to inspection Psych Mental Status: mental status grossly normal Course Vital Signs Vital signs: Vital Signs Temperature 36.4 C L 09/22/20 22:50 Pulse 97 H 09/22/20 22:50 Respiratory Rate 16 09/22/20 22:50 Blood Pressure 123/65 09/22/20 22:50 Pulse Oximetry 96 09/22/20 22:50 Temperature 36.4 C L 09/22/20 22:50 Temperature Source Skin 09/22/20 22:50 Pulse 97 H 09/22/20 22:50 Respiratory Rate 16 09/22/20 22:50 Respiratory Effort Non-Labored 09/22/20 22:53 Blood Pressure 123/65 09/22/20 22:50 Blood Pressure Position Supine 09/22/20 22:50 Pulse Oximetry 96 09/22/20 22:50 Oxygen Delivery Method Room Air 09/22/20 22:50 Oxygen Flow Rate 0 09/22/20 22:50 Pain Level 8 09/22/20 22:50
[2020-09-22] MEDS: Normal Saline 1,000 ML 1000 ML IV (23:35)
[2020-09-22 23:38] LABS: Abs Immature Grans 0.08 10^3/uL (0.0-0.06); Absolute Basophil Count 0.07 10^3/uL (0.0-0.2); Absolute Lymphocyte Count 3.66 10^3/uL (1.2-3.4); Absolute Monocyte Count 1.25 10^3/uL (0.1-0.8); Absolute Neutrophil Count 6.27 10^3/uL (1.2-6.7); Basophils % 0.6; Eosinophils % 4.2; HCT 45.4 % (40.0-50.0); Immature Grans % 0.7; Lymphocytes % 30.9; MCH 29.7 pg (27.0-33.0); MCV 89.9 fL (80-95); MPV 9.7 fL (8.0-11.0); Monocytes % 10.6; Nucleated RBC 0 %; Platelet Count 324 10^3/uL (130-400); RBC 5.05 10^6/uL (4.36-5.78); RDW 13.2 % (11.8-14.1); RDW-SD 43.6 fL; WBC 11.83 10^3/uL (4.4-10.8)
[2020-09-22 23:48] LABS: Bilirubin, Direct 0.1 mg/dL (0.0-0.2)
--- NOTE | 2020-09-22 23:55 | DI.CT_ITS ---
Exam(s) CT ABDOMEN PELVIS W EXAM: CT ABDOMEN PELVIS W CLINICAL HISTORY: right sided abdomen pain TECHNIQUE: Imaging Protocol: Axial computed tomography images with coronal and sagittal reformatted images were created and reviewed CONTRAST MATERIAL: Intravenous: Omnipaque 350 Contrast volume:100 mL Oral: No COMPARISON: CT CT ABDOMEN PELVIS W from 03/12/2019 FINDINGS: The examination is limited due to patient motion artifact. ABDOMEN: Lung Bases: There is a 6 mm noncalcified pulmonary nodule in the right middle lobe. There is scarrin g or atelectasis in the lung bases. Liver: There is diffuse decreased attenuation of the liver consistent with fatty infiltration. The l iver measures 22 cm in length. No measurable mass. Portal, Superior Mesenteric, and Splenic Veins: Unremarkable. Gallbladder and Biliary Tract: No radiodense calculus or dilation. The gallbladder is contracted. Pancreas: Normal density, no abnormal calcifications or inflammatory process. Spleen: Normal. Adrenals: No masses seen. Kidneys: Normal size, contour and axis. No radiodense stones or obstructive uropathy. No masses seen. Abdominal Aorta: Abdominal portion non-dilated. Bowel: No obstruction or bowel wall thickening. Appendix is unremarkable. There is a question of mild thickening in the terminal ileum. This is compromised secondary to the patient motion artifact whic h is marked in this region. Peritoneal Cavity: No ascites, collection or mesenteric inflammatory response. No free air. Lymph Nodes: Within normal limits. Bones: Within normal limits for the patient's age. Soft Tissues: Unremarkable. PELVIS: Bladder: Symmetric distention, no gross wall thickening. Reproductive Organs: Unremarkable as visualized. Lymph Nodes: Within normal limits. Bones: Within normal limits for the patient's age. IMPRESSION: 1. Significant patient motion artifact limits examination. 2. A question of mild thickening in the wall of the terminal ileum. However this area is significant ly compromised by patient motion artifact. Please correlate clinically. 3. Hepatomegaly and hepatic steatosis. RADIATION DOSE DELIVERED: 1,776.31mGy.cm Total DLP DATA REPOSITORY: All CT scans at this facility are submitted to the National Radiology Data Registry (NRDR) Dose Index Registry (DIR) with the [employer] (ACR). RADIATION OPTIMIZATION: All CT scans at this facility use at least one of these dose optimization te chniques: automated exposure control; mA and/or kV adjustment per patient size (includes targeted exa ms where dose is matched to clinical indication); or iterative reconstruction.
[2020-09-23] VITALS (11 sets, daily range): BP systolic 98–116; BP diastolic 51–65; PULSE 81–87; O2SAT 95–96
[2020-09-23] LABS: ALT 70 U/L (16-63); AST 42 U/L (15-37); Albumin 3.7 g/dL (3.4-5.0); Alkaline Phosphatase 63 U/L (46-116); Anion Gap 7.5 mmol/L (3-11); BUN 16 mg/dL (7-18); Bilirubin, Total 0.4 mg/dL (0.2-1.0); CO2 24.5 mmol/L (21.0-32.0); CREATININE 1.2 mg/dL (0.70-1.30); Calcium 9.2 mg/dL (8.5-10.1); Chloride 108 mmol/L (98-107); Glucose 99 mg/dL (74-106); Lipase 70 U/L (73-393); Magnesium 2.1 mg/dL (1.8-2.4); Potassium 3.8 mmol/L (3.5-5.1); Sodium 140 mmol/L (136-145); Total Protein 7.7 g/dL (6.4-8.2)
--- NOTE | 2020-09-23 00:03 | NUR.NOTE ---
Report from JESSICA Cortes for continued care. Patient returns from radiology.Nursing Note:
[2020-09-23] MEDS: Omnipaque 350 MG/ML 100 ML BTL IJ (00:09)
[2020-09-23] MEDS: Normal Saline - Diluent 50 ML VIAL IV (00:10)
[2020-09-23] MEDS: Normal Saline Flush 10 ML SYR IVP (00:10)
--- NOTE | 2020-09-23 01:02 | DI.VRAD_ITS ---
PROCEDURE INFORMATION: Exam: CT Abdomen And Pelvis With Contrast Exam date and time: 09/22/2020 11:05 PM Age: 34 years old Clinical indication: Other: Right sided abdomen pain TECHNIQUE: Imaging protocol: Computed tomography of the abdomen and pelvis with contrast. Radiation optimization: All CT scans at this facility use at least one of these dose optimization techniques: automated exposure control; mA and/or kV adjustment per patient size (includes targeted exams where dose is matched to clinical indication); or iterative reconstruction. Contrast material: OMNIPAQUE 350; Contrast volume: 100 ml; Contrast route: INTRAVENOUS (IV); COMPARISON: CT ABDOMEN PELVIS W 03/12/2019 1:55 PM FINDINGS: Lungs: The visualized lung proctor show mild bibasilar atelectasis. Liver: There is mild hepatomegaly. No enhancing liver masses identified. Gallbladder and bile ducts: The gallbladder is contracted and appears otherwise normal. Pancreas: Normal in size and homogeneous enhancement. No ductal dilation. Spleen: Normal. No splenomegaly. Adrenal glands: Normal. No mass. Kidneys and ureters: There is no hydronephrosis. No renal or obstructing ureteral calculi. Stomach and bowel: There is mild diverticulosis in the descending colon and sigmoid without evidence of acute diverticulitis. There is mild thickening of the wall of the terminal ileum with stranding in the adjacent mesentery. (series 5, images [id number]; series 6, images 48-55). Appendix: The appendix is identified and appears normal. Intraperitoneal space: No free air. No significant fluid collection. Vasculature: There is no abdominal aortic aneurysm. Lymph nodes: No enlarged retroperitoneal or mesenteric lymph nodes. Urinary bladder: The bladder shows a normal contour and is free of calcific opacities. Reproductive: Unremarkable as visualized. Bones/joints: No acute fracture. Soft tissues: Normal. Other findings: Motion artifact degrades multiple images. IMPRESSION: 1. Findings suggestive of terminal ileitis, likely infectious or inflammatory. However, motion artifact may present a similar picture. Clinical correlation is necessary. 2. Mild hepatomegaly. 3. Mild sigmoid diverticulosis without acute diverticulitis. Dictated and Authenticated by: Morales Babin MD. Ordering:NOHELIA Peraza MD
[2020-09-24 09:45] LABS: Hepatitis A Antibody IgM Negative (Negative); Hepatitis B Core Antibody Negative (Negative); Hepatitis B surface Ag Negative (Negative); Hepatitis C Ab w Rflx HCV PCR Negative (Negative)
== END 2020-09-23 01:23 | disposition home or self-care (01) ==
PROVIDERS: Emergency Provider Emergency Medicine; PCP Nurse Practitioner
DX: K76.89 Other specified diseases of liver (principal); R79.89 Other specified abnormal findings of blood chemistry; R10.9 Unspecified abdominal pain
CPT/HCPCS: 80053; 83690; 86704; 86709; 86803; 87340; 96360; 99285; 74177; 82248; 83735; 85025; 99284; J3490

== ENCOUNTER 2022-01-11 10:38 | Outpatient (CLI) | payer MEDICAID, SELFPAY ==
[2022-01-11 12:15] LABS: HCT 47.9 % (40.0-50.0); HGB 15.6 g/dL (13.5-17.5); MCH 29.2 pg (27.0-33.0); MCHC 32.6 % (32.0-36.0); MCV 90 fL (80-95); MPV 9.8 fL (8.0-11.0); Platelet Count 345 10^3/uL (130-400); RBC 5.34 10^6/uL (4.36-5.78); RDW 13.1 % (11.8-14.1); RDW-SD 43.4 fL; WBC 9.16 10^3/uL (4.4-10.8)
[2022-01-11 12:55] LABS: Anion Gap 8.7 mmol/L (3-11); BUN 20 mg/dL (7-18); CO2 25.3 mmol/L (21.0-32.0); CREATININE 1.1 mg/dL (0.70-1.30); Calcium 9.4 mg/dL (8.5-10.1); Calculated LDL 167 mg/dL (<100); Chloride 103 mmol/L (98-107); Cholesterol 266 mg/dL (<200); Estimated GFR 90.34 (mL/min/1.73m2); Glucose 100 mg/dL (74-106); HDL Cholesterol 40 mg/dL (40-60); Sodium 137 mmol/L (136-145); Triglyceride 298 mg/dL (<150); Vitamin B12 641 pg/mL (193-986)
[2022-01-11 12:58] LABS: Vitamin D 25 Total 11.3 ng/mL (30-100)
== END 2022-01-11 10:39 | disposition home or self-care (01) ==
LOC: LOS 10:38
PROVIDERS: PCP Nurse Practitioner Family; Referring Provider Nurse Practitioner Family; Visit Provider Nurse Practitioner Family
DX: E78.00 Pure hypercholesterolemia, unspecified (principal); R53.83 Other fatigue; E53.8 Deficiency of other specified B group vitamins; E55.9 Vitamin D deficiency, unspecified
CPT/HCPCS: 36415; 80048; 80061; 82306; 85027; 82607

== ENCOUNTER → 2022-01-16 01:37 | Outpatient (CLI) | payer MEDICAID, SELFPAY ==
--- NOTE | 2022-01-16 08:40 | DI.RAD_ITS ---
Exam(s) XR ELBOW LT COMPLETE EXAM: XR ELBOW LT COMPLETE CLINICAL HISTORY: LT ELBOW PIAN, [id number]. TECHNIQUE: 2D digital imaging was performed. Three views. COMPARISON: No exams were available for comparison FINDINGS: BONES: No acute fracture is present. No bony destructive lesion is seen. JOINTS: The elbow is normally aligned. No joint effusion is seen. SOFT TISSUE: Normal. IMPRESSION: Unremarkable radiographs of the left elbow. DATA REPOSITORY: RADIATION DOSE DELIVERED:
== END ==
PROVIDERS: PCP Nurse Practitioner Family; Visit Provider Nurse Practitioner Family
DX: M25.522 Pain in left elbow (principal)
CPT/HCPCS: 73080

== ENCOUNTER 2022-02-02 16:44 | Emergency (ER) | payer MEDICAID, SELFPAY ==
[2022-02-02 16:52] VITALS: BP 133/88; PULSE 115; RESP 20; TEMP 38; O2SAT 97
[2022-02-02 17:39] LABS: COVID-19 PCR Negative (Negative); Influenza A PCR Positive (Negative); Influenza B PCR Negative (Negative); RSV PCR Negative (Negative)
[2022-02-02 17:42] LABS: Source Nasopharynx
[2022-02-02 17:58] VITALS: TEMP 38
[2022-02-02] MEDS: Ibuprofen 600 MG TAB PO (17:58)
--- NOTE | 2022-02-02 18:06 | ED.GENADUL_ITS ---
Discharge Plan Disposition Patient Disposition: Home Condition: Stable Discharge Details Clinical Impression: Influenza A Primary Care Provider: Reagan Kamara ED Provider: Joseph Bonilla Home Meds and New Rx's Prescriptions: New benzonatate 200 mg capsule 200 mg PO TID PRN (Reason: cough) Qty: 30 0RF Continued atorvastatin 20 mg tablet 20 mg PO DAILY Qty: 30 3RF Discharge Instructions Instructions: Influenza (ED) Additional Instructions: It is very important during viral illness to get plenty of rest stay well- hydrated and continue to take tsek-fix-dfcikun medications as needed for symptoms. These include both Tylenol and Motrin as needed for fever or pain. If you have any severe shortness of breath or significant worsening of your symptoms especially after 7 days of illness feel free to return to the emergency department otherwise follow-up with your primary care provider if not improving. Referrals: Reagan Kamara, [employer] [Primary Care Provider] - 1 week (If not improving) Discharge Data Discharge Date/Time-TO BE ENTERED AT DEPARTURE: 02/02/22 18:18 Medical Decision Making Patient presenting to the emergency department for cold-like symptoms for the past 4 days. He states he is used some iifw-koc-xjtdjjl medication continues to have symptoms. Physical exam shows mild tachycardia otherwise unremarkable exam. Patient was mildly febrile at presentation and review of vital signs but patient has not hypotensive not hypoxic not tachypneic. Viral pathogen swab was performed and patient was positive for flu A. Patient outside the window for any antiviral therapy, did prescribe patient Tessalon Perles to help with cough symptoms and discussed conservative measures for illness. After discussion of diagnosis and plan of care patient has no further needs, questions, or concerns and states clear understanding to return to the emergency department for any worsening symptoms. This documentation was generated using LoLoation system, please disregard any oddities of phrase or misspellings. Lab Data Lab results reviewed: Yes I reviewed the patient's lab results. HPI General Mode of arrival: ambulatory . Date/Time Provider Initiated Documentation: 02/02/22 16:49 . Limitations to Documentation: no limitations . Information obtained by: RN notes reviewed . History of Present Illness 36 year old M presents to the emergency department with the chief complaint of Cough cold and body aches, described as moderate, Quality is described as aching, Patient started experiencing this day(s) (4) and it has been constant. No relieving factors improve symptom(s), No exacerbating factors reported . Patient did receive the following treatments prior to arrival, NSAID Related Data Home Medications Medication Instructions Recorded Confirmed atorvastatin 20 mg tablet 20 mg PO DAILY #30 tabs 01/11/22 02/02/22 benzonatate 200 mg capsule 200 mg PO TID PRN cough #30 caps 02/02/22 Previous Rx's Medication Instructions Recorded atorvastatin 20 mg tablet 20 mg PO DAILY #30 tabs 01/11/22 benzonatate 200 mg capsule 200 mg PO TID PRN cough #30 caps 02/02/22 Allergies Allergy/AdvReac Type Severity Reaction Status Date / Time No Known Allergies Allergy Verified 02/02/22 16:59 General Stated Complaint: GenMedical TERRY: 3 Review of Systems Constitutional Constitutional: Reports body ache(s), Reports chills, Reports fever(s), Reports headache(s) and Reports malaise Eyes Eyes: Denies eye discharge ENT Ears, Nose, Mouth, and Throat: Reports as per HPI, Denies ear discharge, Denies otalgia, Reports headache(s), Reports nasal congestion, Denies neck pain, Reports sore throat and Denies throat swelling Cardiovascular Cardiovascular: Denies chest pain and Denies dyspnea Respiratory Respiratory: Reports cough and Denies dyspnea Musculoskeletal Musculoskeletal: Denies joint swelling and Denies neck pain Integumentary/Breasts Skin/Breast: Denies rash Neurologic Neurologic: Reports headache(s) Allergic/Immunologic Allergic/Immunologic: Denies throat swelling PFSH All Active Problems (Updated 02/02/22 @ 18:09 by Joseph Bonilla NP) Influenza A (Acute) Lateral epicondylitis (Acute) Fatigue (Acute) Vitamin B12 deficiency (Acute) Encounter for vitamin deficiency screening (Acute) Hypercholesterolemia (Acute) Abdominal pain (Acute) Hepatomegaly (Acute) Tobacco dependence (Acute) Obese abdomen (Acute) Lumbosacral radiculitis (Acute) Rosacea (Acute) vs facial eczema Heart murmur (Acute 01/31/07) NORMAL ECHOCARDIOGRAM 2012 ( {told in past: pulmonic stenosis?} Medical History ADHD (attention deficit hyperactivity disorder) DDD (degenerative disc disease) Depression Diverticula of colon Elbow pain, left Epiploic appendagitis Heart murmur Herniated nucleus pulposus Hx of back injury Left leg pain Low back pain Spinal stenosis Family History Mother Asthma Father Hyperlipidemia Sister Depression Brother Alcohol abuse Depression Brother No problems noted. Son No problems noted. Son No problems noted. Daughter No problems noted. 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 Pets and animals: Yes Pets and animals: dog(s) Sexually active: Yes Do you think of yourself as: straight/heterosexual Current gender identity: male What is your relationship status?: How often do you talk on the phone with friends or family?: three or more times per week How often do you get together with friends or relatives?: once per week How often do you attend restorationism or cheondoism services?: decline to answer Do you belong to any clubs or organized social groups?: no Panel score (0-1 are the most socially isolated patients): 2 What type of physical activity do you participate in: walking and independent ambulation Duration: 15-30 minutes/day Frequency: daily Bethanie/Restoration: No preference Seatbelt use: sometimes Helmet use: Yes Helmet use: sometimes Drive intox or ride w/intox city route driver: No Do you feel safe at home: Yes Do you feel safe in your relationship?: Yes Exam Const General: cooperative, comfortable and no acute distress Orientation: alert and awake [facility] Head: normal to inspection, normocephalic and atraumatic Ears: hearing grossly normal bilaterally and TM's normal bilaterally General nose exam: external nose normal Face and sinus: no erythema Mouth: oral mucosae normal, no drooling, no muffled voice and no trismus Throat: posterior oropharynx normal Neck Neck: normal visual inspection, full ROM, no lymphadenopathy, no meningeal signs, trachea midline and supple Resp Effort & Inspection: normal respiratory effort, able to speak in complete sentences and cough Quality of cough: dry Auscultation: clear to auscultation bilaterally Cardio Rate: tachycardic Rhythm: regular rhythm Heart Sounds: S1 normal, S2 normal, no gallops, no murmurs and no rubs Skin General skin exam: no rashes or lesions noted and dry skin (warm) Neuro General: patient alert, patient awake, patient oriented x3, gait normal and moves all extremities Cognition: normal cognition Speech: speech normal Course Vital Signs Vital signs: Vital Signs Temperature 38.0 C H 02/02/22 16:52 Pulse 115 H 02/02/22 16:52 Respiratory Rate 20 02/02/22 16:52 Blood Pressure 133/88 02/02/22 16:52 Pulse Oximetry 97 02/02/22 16:52 Temperature 38.0 C H 02/02/22 17:58 Temperature Source Oral 02/02/22 16:52 Pulse 115 H 02/02/22 16:52 Respiratory Rate 20 02/02/22 16:52 Respiratory Effort Non-Labored 02/02/22 18:03 Respiratory Depth Normal 02/02/22 18:03 Respiratory Pattern Normal 02/02/22 18:03 Blood Pressure 133/88 02/02/22 16:52 Blood Pressure Position Sitting 02/02/22 16:52 Pulse Oximetry 97 02/02/22 16:52 Oxygen Delivery Method Room Air 02/02/22 16:52 Oxygen Flow Rate 0 02/02/22 16:52 Pain Level 8 02/02/22 16:52 Lab/Test Results Lab/Test Results: Laboratory Tests Range/Units 02/02/22 16:52 COVID-19 Source Nasopharynx SARS-CoV-2 (PCR) (Negative) Negative Influenza Type A (PCR) (Negative) Positive A Influenza Type B (PCR) (Negative) Negative RSV (PCR) (Negative) Negative PAWSS Have you Been Recently Intoxicated or Drunk Within the Last 30 days?: No Have you Ever Experienced Previous Episodes of Alcohol Withdrawal?: No Have you ever Experienced Withdrawal Seizures?: No Have you ever Experienced Delirium Tremens(DT)s?: No Have you ever undergone Alcohol Rehabilitation Treatment (i.e, inpt ot outpatient treatment programs)?: No Have you ever Experienced Blackouts?: No Have you ever Combined Alcohol with other Downers within the last 90 days?: No Have you ever Combined Alcohol with any other Substance of Abuse during the last 90 days?: No Positive Blood Alcohol level on Presentation? [PCS.BAL]: No Evidence of Increased Autonomic Activity (i.e. HR>120, tremor, sweating, agit ation, nausea)?: No Result: 0
[2022-02-02 18:15] VITALS: BP 132/75; PULSE 106; RESP 18; TEMP 37.5; O2SAT 96
== END 2022-02-02 18:18 | disposition home or self-care (01) ==
PROVIDERS: Physician Assistant; Emergency Provider Nurse Practitioner Family; PCP Nurse Practitioner Family
DX: J10.1 Influenza due to other identified influenza virus with other respiratory manifestations (principal)
CPT/HCPCS: 87637; 99283

== ENCOUNTER 2022-03-14 01:16 | Outpatient (CLI) | payer MEDICAID, SELFPAY ==
--- NOTE | 2022-03-14 06:45 | DI.MRI_ITS ---
Exam(s) MR LUMBAR SPINE WO EXAM: MR LUMBAR SPINE WO CLINICAL HISTORY: pre-injection,lumbosacral radiculitis, m54.17,pain. TECHNIQUE: Multiplanar multisequence MRI of the Lumbar spine was performed. COMPARISON: MR MR lumbar spine wo from 12/12/2017 FINDINGS: Bones: The last intervertebral disc space is designated the L5/S1 level for the numbering purpose of this examination. The vertebral body heights are well maintained. Alignment is satisfactory. There is a hemangioma or fatty rest in the L1 vertebral body. Otherwise marrow signals within normal limit s. Cord: The conus tip ends at the L1 level. It is of normal size and signal intensity. T12-L1: No disc herniations or bulges are present. No central spinal canal or neural foraminal stenos is. L1-2: No disc herniations or bulges are present. No central spinal canal or neural foraminal stenosis . L2-3: No disc herniations or bulges are present. No central spinal canal or neural foraminal stenosis . L3-4: No disc herniation or disc bulge is present. There is disc desiccation. No central spinal can al or neural foraminal stenosis. L4-5: No disc herniations or bulges are present. No central spinal canal or neural foraminal stenosis .There are mild degenerative changes of the facets, left greater than right. L5-S1: There is disc desiccation. There is again seen a left-sided osteophyte and disc. There are d egenerative changes of the facets, left greater than right. No significant central spinal canal sten osis is seen. There is again seen moderate left neural foraminal narrowing. No significant right ne ural foraminal narrowing is present. Soft tissues: The visualized SI joints and sacrum are well maintained. The paraspinal soft tissues ar e unremarkable. IMPRESSION: 1. Multilevel degenerative changes in the lumbar spine. 2. Findings are most marked at L5-S1 where there is moderate left neural foraminal stenosis. DATA REPOSITORY:
== END 2022-03-14 01:36 ==
PROVIDERS: PCP Nurse Practitioner Family; Visit Provider Nurse Practitioner Family
DX: M54.17 Radiculopathy, lumbosacral region (principal); M51.17 Intervertebral disc disorders with radiculopathy, lumbosacral region; M47.27 Other spondylosis with radiculopathy, lumbosacral region; M99.83 Other biomechanical lesions of lumbar region
CPT/HCPCS: 72148

== ENCOUNTER 2022-06-07 09:03 | Outpatient (CLI) | payer MEDICAID, SELFPAY ==
[2022-06-07 09:18] VITALS: BP 149/68; PULSE 74; RESP 20; TEMP 36.6; O2SAT 96
[2022-06-07] MEDS: methylPREDNISolone ACETATE 80 MG/ML VIAL IJ (09:55)
[2022-06-07 09:56] VITALS: BP 137/81; PULSE 67; RESP 16; O2SAT 97
[2022-06-07] MEDS: Omnipaque 240 MG/ML 50 ML BTL IJ (09:56)
--- NOTE | 2022-06-07 09:56 | PDOC.PAIN_ITS ---
Date of service: 06/07/22 Time of Service: 09:59 Pain Managment Procedure Note Procedure Note Procedure Note: Lumbar Epidural Steroid Injection Procedure Note COMMENTS:His last LESI was on 07/06/21 and he had >6 months of >50% pain improv ement with this procedure. His pain did return just as it was prior to the 07/06/21 procedure and he was re-referred to repeat this procedure. Pre- procedure pain VAS was 7/10 Dx: Lumbosacral radiculopathy Danny Khan has been referred to the [facility] for lumbar epidural steroid injection. The patient was greeted by the nurse who verified patients name and . Patient was then taken to the fluoroscopy suite. The patient was interviewed and the medial record reviewed. There were no medical, pharmacologic, radiographic, or other structural contraindications to attempting fluoroscopically guided lumbar epidural steroid injection. Risks and expected side effects as well as potential benefits of the procedure were reviewed and voiced concerns expressed. The patient consent form was signed and witnessed. Standard patient time-out procedure was performed. The patient was placed in the prone position on the fluoroscopy table and automated blood pressure cuff and pulse oximeter applied. The skin entry point for entering/approaching the epidural space at L5-S1 on the left and marked. Following thorough chlorhexadine preparation of the skin and draping and 1% lidocaine infiltration of the skin entry point and subcutaneous tissues, a 18 gauge Touhy needle was placed under fluoroscopic guidance and with loss of resistance technique into the epidural space. Needle tip placement and depth were aided and confirmed by fluoroscopy. There was no paresthesia or return of blood or CSF through the needle. 1 cc's of Omnipaque 240 was injected with clear epidural spread confirmed with fluoroscopy. 80mg depomedrol was injected. There was not any unusual discomfort expressed by Danny Khan. Patient's vital signs were stable throughout the procedure and were as recorded in nursing records. Follow up plans and appointments were discussed with patient. Post procedure instruction was given as documented in nursing records and having met discharge criteria and was discharged from the [facility]. COMMENTS: If this procedure is helpful, it can be completed up to 4 times per 12 months. Post-procedure pain VAS was 3/10. Yogi Greer DO, MPH [facility] Management [facility]
--- NOTE | 2022-06-07 09:56 | DI.RAD_ITS ---
Exam(s) XR PAIN CLINIC LUMBAR SP 2V EXAM: XR PAIN CLINIC LUMBAR SP 2V CLINICAL HISTORY: Dx: Lumbar Radiculopathy. TECHNIQUE: Fluoroscopy was provided for the referring physician for guidance with performing pain cl inic injection procedure. COMPARISON: No exams were available for comparison FINDINGS: Please see procedure note for details. Fluoro time: 25.9 seconds RADIATION DOSE DELIVERED: Ka,r=16.68 mGy
== END 2022-06-07 09:04 | disposition home or self-care (01) ==
LOC: PC 09:04
PROVIDERS: PCP Nurse Practitioner Family; Visit Provider Preventive Medicine Occupational Medicine
DX: M47.26 Other spondylosis with radiculopathy, lumbar region (principal)
CPT/HCPCS: 62323; 72100; J1040; Q9967

== ENCOUNTER 2022-06-14 11:23 | Outpatient (CLI) | payer MEDICAID, SELFPAY ==
[2022-06-14 13:27] LABS: Vitamin D 25 Total 31.9 ng/mL (30-100)
== END 2022-06-14 11:24 | disposition home or self-care (01) ==
PROVIDERS: PCP Nurse Practitioner Family; Visit Provider Nurse Practitioner Family
DX: R79.89 Other specified abnormal findings of blood chemistry (principal); E55.9 Vitamin D deficiency, unspecified
CPT/HCPCS: 36415; 82306

== ENCOUNTER 2022-07-04 02:58 | Outpatient (CLI) | payer MEDICAID, SELFPAY ==
[2022-07-04 12:53] LABS: ALT 46 U/L (16-63); AST 17 U/L (15-37); Albumin 3.7 g/dL (3.4-5.0); Alkaline Phosphatase 76 U/L (46-116); Anion Gap 8.4 mmol/L (3-11); BUN 24 mg/dL (7-18); Bilirubin, Total 0.2 mg/dL (0.2-1.0); CO2 22.6 mmol/L (21.0-32.0); Calcium 9.3 mg/dL (8.5-10.1); Chloride 110 mmol/L (98-107); Estimated GFR 101.28 (mL/min/1.73m2); Glucose 112 mg/dL (74-106); Potassium 4.3 mmol/L (3.5-5.1); Sodium 141 mmol/L (136-145); Total Protein 7.6 g/dL (6.4-8.2)
[2022-07-04 12:55] LABS: Calculated LDL 77 mg/dL (<100); Cholesterol 151 mg/dL (<200); HDL Cholesterol 30 mg/dL (40-60); Triglyceride 221 mg/dL (<150)
== END 2022-07-04 02:59 | disposition home or self-care (01) ==
LOC: LOS 02:58
PROVIDERS: Nurse Practitioner Family; PCP Nurse Practitioner Family; Visit Provider Nurse Practitioner Family
DX: E78.00 Pure hypercholesterolemia, unspecified (principal)
CPT/HCPCS: 36415; 80053; 80061

== ENCOUNTER 2022-07-12 15:22 | Outpatient (REF) | payer MEDICAID, SELFPAY ==
[2022-07-12 13:18] LABS: Vitamin D 25 Total 23.2 ng/mL (30-100)
== END 2022-07-12 15:23 | disposition home or self-care (01) ==
LOC: LBN 15:22
PROVIDERS: PCP Nurse Practitioner Family; Visit Provider Nurse Practitioner Family
DX: R79.89 Other specified abnormal findings of blood chemistry (principal); E55.9 Vitamin D deficiency, unspecified
CPT/HCPCS: 82306

== ENCOUNTER 2023-03-07 11:54 | Outpatient (CLI) | payer SELFPAY ==
[2023-03-07 12:21] VITALS: BP 133/75; PULSE 66; RESP 20; TEMP 36.7; O2SAT 97
[2023-03-07 12:48] VITALS: BP 127/83; PULSE 76; RESP 26; O2SAT 96
[2023-03-07] MEDS: methylPREDNISolone ACETATE 80 MG/ML VIAL IJ (12:49)
[2023-03-07] MEDS: Omnipaque 240 MG/ML 50 ML BTL IJ (12:49)
[2023-03-07] MEDS: Nerve Block Tray 1 EACH MC (12:50)
--- NOTE | 2023-03-07 12:50 | DI.RAD_ITS ---
Exam(s) XR PAIN CLINIC LUMBAR SP 2V EXAM: XR PAIN CLINIC LUMBAR SP 2V CLINICAL HISTORY: Dx: Lumbar Radiculopathy. TECHNIQUE: Fluoroscopy was provided for the referring physician for guidance with performing pain cl inic injection procedure. COMPARISON: No exams were available for comparison FINDINGS: Please see procedure note for details. Fluoro time: 16.3 seconds RADIATION DOSE DELIVERED: Ka,r=11.52 mGy
--- NOTE | 2023-03-07 12:51 | PDOC.PAIN_ITS ---
Date of service: 03/07/23 Time of Service: 12:51 Pain Managment Procedure Note Procedure Note Procedure Note: PROCEDURE NOTE LUMBAR EPIDURAL STEROID INJECTION Date of Service: March 07, 2023 Patient:Danny Lau? Provider: Yogi Brito DO, MPH Danny Khan has been referred to the [facility] for a lumbar epidural steroid injection. Pre-operative diagnosis: Lumbosacral Radiculopathy Post-operative diagnosis: Same Pre-Procedure Pain: VAS= 8/10 Comments: He has had this procedure in the past. His last LESI was on 06/07/22- he received >6 months of >50% relief from this procedure. The pain has mostly returned. This procedure has also allowed him to keep working. Danny was interviewed and the medical record was reviewed.? There were no medical, pharmacologic, radiographic or other structural contraindications to attempting fluoroscopically guided Lumbar epidural steroid injection.? Risks, potential side effects, indications, and potential benefits of the procedure were reviewed with Danny.? Questions and concerns were addressed.? After it was clear that Danny was fully informed about the procedure, the printed consent form was signed by the patient and myself.? Danny was placed in the prone position on the fluoroscopy table and automated blood pressure cuff and pulse oximeter applied. The skin entry point for entering/approaching the epidural space for the lumbar epidural steroid injection was marked. Following thorough chlorhexadine preparation of the skin and draping and 1% lidocaine infiltration of the skin entry point and subcutaneous tissues, an 18 gauge Touhy needle was placed and advanced under fluoroscopic guidance and with loss of resistance technique into the L5-S1 epidural space. Needle tip placement and depth were aided and confirmed by fluoroscopy. There was no paresthesia or return of blood or CSF through the nee dle. 1 mls of Omnipaque 240 was injected with clear epidural spread confirmed with fluoroscopy. 80 mg of Depo-Medrol was? injected. This was followed by 1 ml of preservative-free normal saline to flush the steroid out of the needle. There was no unusual discomfort expressed by Danny. The needle was withdrawn without difficulty. (49 mls of Omnipaque was wasted) Danny was observed and was without hemodynamic, neurologic, or allergic reactions.? Fluoroscopic images were digita lly archived. Danny's vital signs were stable throughout the procedure and were as recorded in nursing records. Follow up plans and appointments were discussed with Danny. Post procedure instruction was given as documented in nursing records and having met discharge criteria Danny was discharged from the [facility] Management [facility]. COMMENTS: No apparent complications. Post-procedure pain: VAS= 0/10. Danny to contact [facility] as needed. If at least 50% improvement in pain and/or function for at least 3 months is achieved, this procedure can be repeated. I personally performed this entire procedure. YOGI BRITO DO, MPH [facility]-subspecialty board certification in Pain Medicine [facility]
== END 2023-03-07 11:55 | disposition home or self-care (01) ==
LOC: PC 12:16
PROVIDERS: PCP Nurse Practitioner Family; Visit Provider Preventive Medicine Occupational Medicine
DX: M54.17 Radiculopathy, lumbosacral region (principal)
CPT/HCPCS: 00123; 62323; 72100; J1040; Q9967

== ENCOUNTER 2023-08-21 19:04 | Outpatient (REF) | payer SELFPAY ==
[2023-08-21 21:50] LABS: ALT 59 U/L (16-63); AST 28 U/L (15-37); Albumin 4.2 g/dL (3.4-5.0); Alkaline Phosphatase 75 U/L (46-116); BUN 14 mg/dL (7-18); Bilirubin, Total 0.61 mg/dL (0.2-1.0); CREATININE 1.1 mg/dL (0.70-1.30); Calcium 9.4 mg/dL (8.5-10.1); Calculated LDL 82 mg/dL (<100); Chloride 105 mmol/L (98-107); Cholesterol 151 mg/dL (<200); Estimated GFR 89.78 (mL/min/1.73m2); Glucose 86 mg/dL (74-106); HDL Cholesterol 38 mg/dL (40-60); Sodium 141 mmol/L (136-145); Total Protein 7.7 g/dL (6.4-8.2); Triglyceride 157 mg/dL (<150); Vitamin B12 798 pg/mL (193-986); Vitamin D 25 Total 19.2 ng/mL (30-100)
[2023-08-23 09:44] LABS: Hepatitis C Ab w Rflx HCV PCR Negative (Negative)
[2023-08-23 09:52] LABS: HIV-1/2 Ag & Ab Screen Negative (Negative)
== END 2023-08-21 19:05 | disposition home or self-care (01) ==
LOC: LBN 19:04
PROVIDERS: PCP Nurse Practitioner Family; Visit Provider Nurse Practitioner Family
DX: E78.00 Pure hypercholesterolemia, unspecified (principal); Z11.4 Encounter for screening for human immunodeficiency virus [HIV]; R79.89 Other specified abnormal findings of blood chemistry; Z11.59 Encounter for screening for other viral diseases; E53.8 Deficiency of other specified B group vitamins
CPT/HCPCS: 80053; 80061; 82306; 86803; 87389; 82607

== ENCOUNTER 2024-02-20 09:20 | Outpatient (CLI) | payer SELFPAY ==
--- NOTE | 2024-02-20 06:00 | DI.RAD_ITS ---
Exam(s) XR PAIN CLINIC LUMBAR SP 2V EXAM: XR PAIN CLINIC LUMBAR SP 2V CLINICAL HISTORY: DX: Lumbar Radiculopathy TECHNIQUE: 2D and realtime digital imaging was performed. CONTRAST MATERIAL: Refer to procedure report. COMPARISON: No exams were available for comparison FINDINGS: Fluoroscopy was provided for Dr. Greer during the performance of a lumbar epidural steroid injection. Please refer to the procedure report for complete details. Ka,r=11.7 mGy IMPRESSION: RADIATION DOSE DELIVERED: 0.0 0.0 0
[2024-02-20 09:46] VITALS: BP 147/94; PULSE 60; RESP 20; TEMP 36.7; O2SAT 100
[2024-02-20 10:01] VITALS: PULSE 59; O2SAT 97
[2024-02-20 10:07] VITALS: BP 135/95; PULSE 68; PULSE 69; RESP 13; O2SAT 97
--- NOTE | 2024-02-20 10:11 | PDOC.PAIN_ITS ---
Date of service: 02/20/24 Time of Service: 10:12 Pain Managment Procedure Note Procedure Note Procedure Note: PROCEDURE NOTE LUMBAR EPIDURAL STEROID INJECTION Date of Service: February 20, 2024 Patient:Danny Lau? Provider: Yogi Brito DO, MPH Danny Khan has been referred to the [facility] Management [facility] for a lumbar epidural steroid injection. Pre-operative diagnosis: Lumbosacral Radiculopathy ICD-10 M54.16 Post-operative diagnosis: Same Pre-Procedure Pain: VAS= 5-6 /10 Comments: His last LESI was on 03/07/23 and he states that he had 6-8 months of >50% pain relief with this procedure. His low back and left leg pain has mostly returned. Danny was interviewed and the medical record was reviewed.? There were no medical, pharmacologic, radiographic or other structural contraindications to attempting fluoroscopically guided Lumbar epidural steroid injection.? Risks, potential side effects, indications, and potential benefits of the procedure were reviewed with Danny.? Questions and concerns were addressed.? After it was clear that Danny was fully informed about the procedure, the printed consent form was signed by the patient and myself.? Danny was placed in the prone position on the fluoroscopy table and automated blood pressure cuff and pulse oximeter applied. The skin entry point for entering/approaching the epidural space for the lumbar epidural steroid injection was marked. Following thorough chlorhexadine preparation of the skin and draping and 1% lidocaine infiltration of the skin entry point and subcutaneous tissues, an 18 gauge Touhy needle was placed and advanced under fluoroscopic guidance and with loss of resistance technique into the L5-S1 epidural space. Needle tip placement and depth were aided and confirmed by fluoroscopy. There was no paresthesia or return of blood or CSF through the needle. 1 mls of Omnipaque 240 was injected with clear epidural spread confirmed with fluoroscopy. 80 mg of Depo-Medrol was? injected. This was followed by 1 ml of preservative-free normal saline to flush the steroid out of the needle. There was no unusual discomfort expressed by Danny. The needle was withdrawn without difficulty. (49 mls of Omnipaque was wasted) Danny was observed and was without hemodynamic, neurologic, or allergic reactions.? Fluoroscopic images were digitally archived. Danny's vital signs were stable throughout the procedure and were as recorded in nursing records. Follow up plans and appointments were discussed with Danny. Post procedure instruction was given as documented in nursing records and having met discharge criteria Danny was discharged from the Pain Management Center. COMMENTS: No apparent complications. Post-procedure pain: VAS= 0/10. Danny to contact [facility] as needed. If at least 50% improvement in pain and/or function for at least 3 months is achieved, this procedure can be repeated. No IV medication was given during this procedure. I personally performed this entire procedure. YOGI BRITO DO, MPH [employer]-subspecialty board certification in Pain Medicine [facility]
[2024-02-20] MEDS: Omnipaque 240 MG/ML 50 ML BTL IJ (10:13)
[2024-02-20] MEDS: Epidural Tray 1 EACH MC (10:13)
[2024-02-20] MEDS: methylPREDNISolone ACETATE 80 MG/ML VIAL IJ (10:14)
== END 2024-02-20 09:21 | disposition home or self-care (01) ==
LOC: PC 09:22
PROVIDERS: PCP Nurse Practitioner Family; Visit Provider Preventive Medicine Occupational Medicine
DX: M54.16 Radiculopathy, lumbar region (principal)
CPT/HCPCS: 62323; 72100; J1010; Q9967

== ENCOUNTER 2024-10-22 21:45 | Emergency (ER) | payer OTHER, SELFPAY ==
[2024-10-22 21:54] VITALS: BP 132/70; PULSE 80; RESP 18; TEMP 36.9; O2SAT 96
--- NOTE | 2024-10-22 22:00 | DI.RAD_ITS ---
Exam(s) XR FOOT RT COMPLETE EXAM: XR FOOT RT COMPLETE CLINICAL HISTORY: crushed w/ pipe, pain at 2nd/3rd phalanges/metatar. TECHNIQUE: 2D digital imaging was performed. COMPARISON: No exams were available for comparison FINDINGS: 3 views No evidence of fracture or diastasis of the Lisfranc joint. Great toe metatarsophalangeal joint appears unremarkable as do the other articulations of the foot. Bone density normal. No osseous lesions nor erosions. No inferior calcaneal spur. No radiopaque foreign bodies. IMPRESSION: No acute osseous findings in the foot. DATA REPOSITORY: RADIATION DOSE DELIVERED:
[2024-10-22] MEDS: Acetaminophen 500 MG TAB 1000 MG PO (22:18)
[2024-10-22] MEDS: Ibuprofen 800 MG TAB PO (22:19)
--- NOTE | 2024-10-22 22:34 | ED.GENADUL_ITS ---
Discharge Plan Disposition Patient Disposition: Home Condition: Good Discharge Details Clinical Impression: Contusion of foot, right Primary Care Provider: Reagan Kamara ED Provider: Dalton Cordon Home Meds and New Rx's Prescriptions: No Action ergocalciferol (vitamin D2) 50 mcg (2,000 unit) tablet 2,000 unit PO DAILY Qty: 90 4RF triamcinolone acetonide 0.5 % cream 1 applic topical BID Qty: 15 0RF Rx Instructions: Apply sparingly to affected area BID for no longer than 2 weeks. atorvastatin 40 mg tablet 40 mg PO DAILY Qty: 90 3RF Discharge Instructions Instructions: Toe Fracture ED Additional Instructions: At this time we do not see any evidence of large fracture. Please wear the walking boot and use the crutches. For the next 3 to 4 days try to avoid bearing any weight on the foot to help with healing process. If it feels well after that time you can then gently transition to weightbearing as tolerated for the next 4 to 5 days with the walking boot alone or 1 crutch. If this continues to feel well you can then transition to just the walking boot or a heavily padded shoe. Please take Tylenol and Motrin as needed for pain. If you notice any worsening of your symptoms, or any new symptoms such as vomiting, diarrhea, fever, chills, shortness of breath, chest pain, numbness, weakness, or fainting , please return immediately to the emergency department for reevaluation. Please follow up with your primary care provider as soon as possible for reassessment and reevaluation. As always, it was a pleasure participating in your medical care today. Stand Alone Forms: Work Release Referrals: Reagan Kamara, RADIOLOGICAL METALLURGIST [Primary Care Provider, Medicine] Discharge Data Discharge Date/Time-TO BE ENTERED AT DEPARTURE: 10/22/24 23:28 HPI General Date/Time Provider Initiated Documentation: 10/22/24 22:00 . HPI Narrative: This is a pleasant 39-year-old male with a past medical history of high cholesterol, previous cardiac murmur, who presents today for right foot injury. Patient had a heavy pipe roll onto his foot today in the morning. He continued to work throughout the rest of the day. He had pain with ambulation and movement. No numbness or tingling and no other injury. He has not taken any NSAID therapy. He denies any other complaints at this time. Related Data Home Medications ?Medication ?Instructions ?Recorded ?Confirmed ergocalciferol (vitamin D2) 50 mcg 2,000 unit PO DAILY #90 tabs 03/20/22 10/22/24 (2,000 unit) tablet atorvastatin 40 mg tablet 40 mg PO DAILY #90 tabs 08/1310/22/24 triamcinolone acetonide 0.5 % 1 applic topical BID #15 grams 09/01/24 10/22/24 topical cream Previous Rx's ?Medication ?Instructions ?Recorded ergocalciferol (vitamin D2) 50 mcg 2,000 unit PO DAILY #90 tabs 03/20/22 (2,000 unit) tablet atorvastatin 40 mg tablet 40 mg PO DAILY #90 tabs 08/13 03/08 triamcinolone acetonide 0.5 % 1 applic topical BID #15 grams 09/01/24 topical cream Allergies Allergy/AdvReac Type Severity Reaction Status Date / Time No Known Allergies Allergy Verified 02/20/24 09:45 General Stated Complaint: Orthopedic TERRY: 4 Exam Narrative Exam Narrative: 1.Const: Well-nourished, Well-developed, appearing stated age 2.Eyes: PERRL, no conjunctival injection, and symmetrical lids. 3.ENT: Atraumatic external nose and ears. Moist MM. Neck: Symmetric, trachea midline, No thyromegaly. 4.CVS: +S1/S2, Peripheral pulses 2+ and equal in all extremities. Brisk capillary refill in all extremities. 5.RESP: Unlabored respiratory effort. Clear to auscultation bilaterally. No wheezes rales or rhonchi 6.GI: Soft, Nontender/Nondistended, No hepatosplenomegaly. No guarding or rebound. 7.MSK: Right foot demonstrates tenderness over the 2nd and 3rd phalanges at the proximal component. Also pain at the distal metatarsals for the 2nd and 3rd. Bruising and swelling is present in this area. No other swelling redness or tenderness elsewhere. No tenderness on the heel or the arch of the foot. No other injury. No large subungual hematoma. Normal sensation throughout all toes. Patient is able to wiggle all toes. 8.Skin: Warm, Dry. No rashes or lesions. 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 Sensation grossly intact, no focal neurologic deficits. 10.Psych: (AAO) x3. Appropriate mood and affect Course Vital Signs Vital signs: Vital Signs Temperature 36.9 C 10/22/24 21:54 Pulse 80 10/22/24 21:54 Respiratory Rate 18 10/22/24 21:54 Blood Pressure 132/70 10/22/24 21:54 Pulse Oximetry 96 10/22/24 21:54 Temperature 36.9 C 10/22/24 21:54 Temperature Source Oral 10/22/24 21:54 Pulse 80 10/22/24 21:54 Respiratory Rate 18 10/22/24 21:54 Blood Pressure 132/70 10/22/24 21:54 Blood Pressure Position Sitting 10/22/24 21:54 Pulse Oximetry 96 10/22/24 21:54 Oxygen Delivery Method Room Air 10/22/24:54 Oxygen Flow Rate 0 10/22/24 21:54 Pain Level 8 10/22/24 21:54 Medical Decision Making This is a pleasant 39-year-old male with a past medical history of high cholesterol, previous cardiac murmur, who presents today for right foot injury. Patient had a heavy pipe roll onto his foot today in the morning. He continued to work throughout the rest of the day. He had pain with ambulation and movement. No numbness or tingling and no other injury. He has not taken any NSAID therapy. He denies any other complaints at this time. Right foot demonstrates tenderness over the 2nd and 3rd phalanges at the proximal component. Also pain at the distal metatarsals for the 2nd and 3rd. Bruising and swelling is present in this area. No other swelling redness or tenderness elsewhere. No tenderness on the heel or the arch of the foot. No other injury. No large subungual hematoma. Normal sensation throughout all toes. Patient is able to wiggle all toes. Exam is concerning for potential fracture. Will get x-rays for further assessment. Will give Tylenol Motrin monitor closely and reassess. xray negative. will send home w/ walking boot and crutches.I have extensively reviewed the treatment plan and discharge instructions with the patient and their family. I have addressed all patient concerns at this time. The patient and family was made aware of what symptoms to monitor for that would warrant a return to the emergency department. Discussed the plan with the patient and family, they demonstrate verbal understanding and agreement with our assessment and plan at this time. The documentation in this chart was dictated using [employer] dictation software. Please excuse any dictation errors. PFSH All Active Problems (Updated 10/22/24 @ 22:37 by Dalton Cordon DO) Contusion of foot, right (Acute) Annual physical exam (Acute) Low vitamin D level (Acute) Eczema (Acute) Vitamin B12 deficiency (Acute) Hypercholesterolemia (Acute) Hepatomegaly (Acute) Tobacco dependence (Acute) Lumbosacral radiculitis (Acute) Heart murmur (Acute 01/31/07) NORMAL ECHOCARDIOGRAM 2012 ( {told in past: pulmonic stenosis?} Medical History (Updated 10/22/24 @ 22:37 by Dalton Cordon DO) Lateral epicondylitis Fatigue Encounter for vitamin deficiency screening Elbow pain, left Abdominal pain Obese abdomen Diverticula of colon Epiploic appendagitis ADHD (attention deficit hyperactivity disorder) Hx of back injury Spinal stenosis Low back pain Left leg pain Herniated nucleus pulposus Depression Heart murmur DDD (degenerative disc disease) Rosacea vs facial eczema Family History Mother Asthma Father Hyperlipidemia Sister Depression Brother Alcohol abuse Depression Brother No problems noted. Son No problems noted. Son No problems noted. Daughter No problems noted. 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 Pets and animals: Yes Pets and animals: dog(s) Sexually active: Yes Do you think of yourself as: straight/heterosexual Current gender identity: male What is your relationship status?: How often do you talk on the phone with friends or family?: three or more times per week How often do you get together with friends or relatives?: once per week How often do you attend jainism or sabianist services?: decline to answer Do you belong to any clubs or organized social groups?: no Panel score (0-1 are the most socially isolated patients): 2 What type of physical activity do you participate in: walking and independent ambulation Duration: 15-30 minutes/day Frequency: daily Bethanie/Synagogue: No preference Seatbelt use: sometimes Helmet use: Yes Helmet use: sometimes Drive intox or ride w/intox carrier driver: No Do you feel safe at home: Yes Do you feel safe in your relationship?: Yes
[2024-10-22 23:37] VITALS: BP 132/74; PULSE 84; RESP 18; O2SAT 99
--- NOTE | 2024-10-23 00:19 | DI.VRAD_ITS ---
Addendum created by Sacha Palma MD on 10/23/2024 12:19:55 AM EDT: ADDENDUM: Cortical irregularity at the dorsal aspect of the tarsometatarsal joints, likely from prior injury. Initial report created on 10/23/2024 12:19:02 AM EDT: PROCEDURE INFORMATION: Exam: XR Right Foot Exam date and time: 10/22/2024 10:37 PM Age: 39 years old Clinical indication: Other: Crushed w/ pipe, pain at 2nd/3rd phalanges/metatar TECHNIQUE: Imaging protocol: Radiologic exam of the right foot. Views: 3 or more views. COMPARISON: No relevant prior studies available. FINDINGS: Bones/joints: Normal. Soft tissues: Normal. IMPRESSION: No acute fracture or dislocation. Dictated and Authenticated by: Sacha Palma MD. Orderin Neris Hoffman MD
--- NOTE | 2024-10-23 11:27 | NUR.NOTE ---
called looking to verify xray read Nursing Note:
--- NOTE | 2024-10-23 11:50 | W.ED.FU ---
Date of service: 10/23/24 Time of Service: 11:50 Follow Up Plan: We received a phone call from the patient's family member requesting final radiology reads. In brief, the patient had a heavy pipe roll over his foot and had tenderness over the right 2nd and 3rd proximal phalanges, x-ray over read and imaging reviewed by myself, shows no osseous abnormalities. These findings were shared with the patient and his family. He was sent home with a walking boot, and has been using conservative management with ice, elevation, Tylenol and ibuprofen. He reports that it still feels difficult to move one of his toes due to swelling and pain, was counseled to be reevaluated by his primary care provider in the next 1 to 2 days if his symptoms have worsened, persistent, or changed. The patient's family member had an opportunity to have all questions answered, and they are understanding of the follow-up plan. Elizabeth Liz MD
--- NOTE | 2024-11-10 09:32 | NUR.NOTE ---
Accessed Pt chart to print the Providers note for [facility]. I will fax the notes to them.
== END 2024-10-22 23:28 | disposition home or self-care (01) ==
LOC: ER 23:30
PROVIDERS: Emergency Provider Student in an Organized Health Care Education/Training Program; PCP Nurse Practitioner Family
DX: S90.31XA Contusion of right foot, initial encounter (principal); W22.8XXA Striking against or struck by other objects, initial encounter
CPT/HCPCS: 99283 ×2; 73630